=== PATIENT | female | born 1955 | race Caucasian/White ===

== ENCOUNTER → 2016-10-03 | Outpatient (CLI) | payer BC ==
[~2016-10-03] VITALS: Ht 167.6 cm; Wt 96.2 kg
[~2016-10-03] MED LIST: ACTIFED PO; GLUC1CAP9 PO; IBUP600T26 PO; LIDOCAINE 2% INJ 100 MG/5 ML SDV (FOR ANES.) As Ordered ONE; NS 1,000 ML IV SCH; PROPOFOL 200 MG/20 ML VIAL As Ordered ONE
--- NOTE | 2016-10-03 07:54 | ROOR ---
Patient Name: Luz Villegas Procedure Date: 10/03/2016 7:33 AM Date of : 1955 Age: 61 Room: [facility] Gender: Female Note Status: Finalized Procedure: Colonoscopy to Cecum + Biopsy Polypectomy Indications: Screening for colorectal malignant neoplasm Providers: Travon New MD Referring MD: Vaishali HENRY MD Requesting Provider: Medicines: Monitored Anesthesia Care Complications: No immediate complications. Procedure: Pre-Anesthesia Assessment: - The heart rate, respiratory rate, oxygen saturations, blood pressure, adequacy of pulmonary ventilation, and response to care were monitored throughout the procedure. The Colonoscope was introduced through the anus and advanced to the cecum, identified by appendiceal orifice and ileocecal valve. The colonoscopy was performed without difficulty. The patient tolerated the procedure well. The quality of the bowel preparation was good. Findings: The perianal and digital rectal examinations were normal. Multiple sessile polyps were found at 10 cm proximal to the anus. The polyps were small in size. These polyps were removed with a cold biopsy forceps. Resection and retrieval were complete. The exam was otherwise without abnormality on direct and retroflexion views. Impression: - Multiple small polyps at 10 cm proximal to the anus, removed with a cold biopsy forceps. Resected and retrieved. - The examination was otherwise normal on direct and retroflexion views. - The exam was otherwise normal to the cecum. Recommendation: - Patient has a contact number available for emergencies. The signs and symptoms of potential delayed complications were discussed with the patient. Return to normal activities tomorrow. Written discharge instructions were provided to the patient. - High fiber diet. - Discharge patient to home. - Continue present medications. - Await pathology results. - Telephone GI clinic for pathology results in 1 week. - Repeat colonoscopy for surveillance based on pathology results. - Return to referring physician. - The findings and recommendations were discussed with the patient's family. Travon New MD Travon New MD 10/03/2016 7:53:56 AM This report has been signed electronically. Number of Addenda: 0 Note Initiated On: 10/03/2016 7:33 AM Estimated Blood Loss: Estimated blood loss: none.
[2016-10-03 08:13] VITALS: BP 148/82
== END ==
LOC: M OPP 06:38
PROVIDERS: ATTEND Internal Medicine Gastroenterology
DX: Z12.11 Encounter for screening for malignant neoplasm of colon (principal); K62.1 Rectal polyp; R06.83 Snoring; M19.90 Unspecified osteoarthritis, unspecified site; E66.9 Obesity, unspecified; M75.51 Bursitis of right shoulder; M75.52 Bursitis of left shoulder; Z79.899 Other long term (current) drug therapy; Z79.1 Long term (current) use of non-steroidal anti-inflammatories (NSAID); Z91.048 Other nonmedicinal substance allergy status

== ENCOUNTER → 2018-02-09 | Outpatient (REF) | payer BC ==
[2018-02-09 12:46] LABS: HEMATOCRIT 37.6 % (36.0-47.0); HEMOGLOBIN 12.3 g/dl (12.0-15.5); MEAN CORPUSCULAR HEMOGLOBIN 28.8 pg (27.0-33.0); MEAN CORPUSCULAR HGB CONC 32.7 g/dl (32.0-36.5); MEAN CORPUSCULAR VOLUME 88.1 fl (80.0-96.0); PLATELET COUNT, AUTOMATED 212 10^3/uL (150-450); RED BLOOD COUNT 4.27 10^6/uL (4.00-5.40); RED CELL DISTRIBUTION WIDTH 13.2 % (11.5-14.5); WHITE BLOOD COUNT 4.8 10^3/uL (4.0-10.0)
[2018-02-09 13:10] LABS: ERYTHROCYTE SEDIMENTATION RATE 8 mm/hr (0-30)
[2018-02-09 14:54] LABS: ALBUMIN 3.6 GM/DL (3.2-5.2); ALBUMIN/GLOBULIN RATIO 1.13 (1.00-1.93); ALKALINE PHOSPHATASE 59 U/L (45-117); ALT/SGPT 30 U/L (12-78); ANION GAP 7 MEQ/L (8-16); AST/SGOT 11 U/L (7-37); BILIRUBIN,TOTAL 0.3 MG/DL (0.2-1.0); BLOOD UREA NITROGEN 18 MG/DL (7-18); C REACTIVE PROTEIN QUANTITATIV 0.37 MG/DL (0.00-0.30); CALCIUM LEVEL 8.8 MG/DL (8.8-10.2); CARBON DIOXIDE LEVEL 29 MEQ/L (21-32); CHLORIDE LEVEL 107 MEQ/L (98-107); CREATININE FOR GFR 0.65 MG/DL (0.55-1.30); GLOMERULAR FILTRATION RATE > 60.0 (>45); GLUCOSE, FASTING 85 MG/DL (70-100); POTASSIUM SERUM 4.3 MEQ/L (3.5-5.1); SODIUM LEVEL 143 MEQ/L (136-145); TOTAL PROTEIN 6.8 GM/DL (6.4-8.2)
[2018-02-11 00:07] LABS: ANTINUCLEAR ANTIBODIES DIRECT Negative (Negative); Lyme Disease IgG/IgM Antibodie <0.91 ISR (0.00-0.90); Lyme Disease IgM Ab Quantitati <0.80 index (0.00-0.79)
[2018-02-11 12:31] LABS: ALBUMIN 4.13 GM/DL (3.29-5.55); ALBUMIN % 60.7 % (55.8-66.1); ALPHA-1-GLOBULIN % 4.5 % (2.9-4.9); ALPHA-1-GLOBULINS 0.31 GM/DL (0.17-0.41); ALPHA-2-GLOBULINS 0.66 GM/DL (0.42-0.99); ALPHA-2-GLOBULINS % 9.7 % (7.1-11.8); BETA-1-GLOBULINS 0.41 GM/DL (0.28-0.60); BETA-2-GLOBULINS 0.38 GM/DL (0.19-0.55); BETA-2-GLOBULINS % 5.6 % (3.2-6.5); GAMMA GLOBULIN % 13.5 % (11.1-18.8); GAMMA GLOBULINS 0.92 GM/DL (0.65-1.58)
== END ==
LOC: M LAB REF 12:25
DX: M79.641 Pain in right hand (principal)
CPT/HCPCS: 84165

== ENCOUNTER → 2018-09-20 | Outpatient (REF) | payer BC ==
[~2018-09-20] MED LIST changes: +IBUP-1022 PO; -IBUP600T26 PO; -LIDOCAINE 2% INJ 100 MG/5 ML SDV (FOR ANES.) As Ordered ONE; -NS 1,000 ML IV SCH; -PROPOFOL 200 MG/20 ML VIAL As Ordered ONE
[2018-09-20 12:58] LABS: ALT/SGPT 39 U/L (12-78)
== END ==
LOC: M LABDRAW1 11:51
PROVIDERS: ATTEND Internal Medicine Rheumatology
DX: R79.89 Other specified abnormal findings of blood chemistry (principal)

== ENCOUNTER → 2018-12-14 | Outpatient (CLI) | payer BC ==
--- NOTE | 2018-12-15 09:10 | REP ---
Chest x-ray: Two views. History: Acute bronchitis. Findings: The lungs are somewhat hyperinflated consistent with some degree of COPD. There are hazy opacities in the right base medially of uncertain significance. Right middle lobe infiltrate suspected. Followup is advised. The thoracic aorta is tortuous. Heart size is normal. No other infiltrate is seen. Pulmonary vasculature is not increased. There are degenerative changes in the right AC joint. The left distal clavicle appears to have been resected. Impression: Findings suggestive of right middle lobe infiltrate. Followup chest x-ray is advised. Electronically Signed by Abdelrahman Bell MD 12/15/2018 09:21 A
== END ==
LOC: M WUC 18:38
PROVIDERS: ATTEND Physician Assistant
DX: R91.8 Other nonspecific abnormal finding of lung field (principal)

== ENCOUNTER → 2018-12-21 | Outpatient (REF) | payer BC | LOC: M LAB REF 12:38 | PROVIDERS: ATTEND Internal Medicine | DX: J12.9 Viral pneumonia, unspecified (principal) ==

== ENCOUNTER → 2019-01-14 | Outpatient (CLI) | payer BC ==
--- NOTE | 2019-01-18 16:24 | SLEEPHOME ---
DATE OF PROCEDURE: 01/14/2019 ORDERED BY JANY Lieberman Diagnostic home sleep testing was performed due to concern for the obstructive sleep apnea syndrome. For testing a nocturnal T3 respiratory monitoring device was used. Continuous record was made of pulse, oxygen saturation, airflow, chest, abdominal strain and body position. 10 hours and 59 minutes of data were reviewed. There were 7 hours and 59 minutes marked as time in bed. During the interval marked time in bed, there were 164 respiratory events identified of 10 seconds in duration or greater for a respiratory event index of 20.5. The events were primarily obstructive. Baseline pulse rate 72, pulse rate ranged 61-143. Baseline saturation 93%. Saturations fell to 73%. Testing was performed in both the supine and nonsupine positions. IMPRESSION: Abnormal home sleep testing with repetitive respiratory events and oxygen desaturations to 73% with a respiratory event index of 20.5 is consistent with the obstructive sleep apnea syndrome. RECOMMENDATIONS: The patient should be encouraged to undergo formal sleep evaluation and in-laboratory pressure titration.
== END ==
LOC: M SLEEP HO 14:01
PROVIDERS: ATTEND Nurse Practitioner Family
DX: R06.83 Snoring (principal)

== ENCOUNTER → 2019-01-15 | Outpatient (CLI) | payer BC ==
--- NOTE | 2019-01-15 14:44 | REP ---
Clinical: Follow up pneumonia . Comparison: 12/14/2018 . Technique: PA and lateral. Findings: The mediastinum and cardiac silhouette are normal. The lung iraheta are clear and without acute consolidation, effusion, or pneumothorax. Previously identified right middle lobe infiltrate has resolved. The skeletal structures are intact and normal. Impression: 1. No acute cardiopulmonary process. Electronically Signed by Kofi Oakes MD 01/15/2019 02:36 P
== END ==
LOC: M WUC 14:22
PROVIDERS: ATTEND Internal Medicine
DX: Z09 Encounter for follow-up examination after completed treatment for conditions other than malignant neoplasm (principal); Z87.01 Personal history of pneumonia (recurrent)

== ENCOUNTER → 2019-06-24 | Outpatient (REF) | payer BC ==
[2019-06-24 12:59] LABS: C REACTIVE PROTEIN QUANTITATIV 1.26 MG/DL (0.00-0.30); RHEUMATOID FACTOR QUANT < 10.0 IU/ML (<15.0)
[2019-06-27 00:09] LABS: ANA (HEP2) Negative (.); CYCLIC CITRULLINATED PEPTIDE 9 units (0-19)
== END ==
LOC: M LAB REF 12:13
PROVIDERS: ATTEND Nurse Practitioner Family
DX: M15.0 Primary generalized (osteo)arthritis (principal)

== ENCOUNTER → 2019-06-27 | Outpatient (CLI) | payer BC ==
--- NOTE | 2019-06-28 02:06 | REP ---
Clinical: Inflammatory arthritis. Technique: AP and lateral views of the right and left foot. Findings: Right foot demonstrates mild generalized age-related changes. No overt osteoarthritic degenerative changes are identified. Specifically, no periarticular inflammatory changes, swelling, loose bodies or erosions are identified. No osteophytosis. Joint spaces are relatively normal. Small calcaneal heal spur noted. Left foot demonstrates mild generalized age-related changes. No overt osteoarthritic degenerative changes are identified. Specifically, no periarticular inflammatory changes, swelling, loose bodies or erosions are identified. No osteophytosis. Joint spaces are relatively normal. Impression: Mild symmetric generalized age-related changes. Electronically Signed by Kofi Oakes MD 06/28/2019 01:57 A
--- NOTE | 2019-06-28 02:40 | REP ---
Clinical: inflammatory arthritis. Technique: AP, lateral, bilateral oblique views of the right and left hand. Findings: Right hand demonstrates mild age-related arthritic changes primarily involving the interphalangeal joints and first metacarpophalangeal joint. Findings include subchondral sclerosis with minimal joint space narrowing and very early spurring at the distal interphalangeal joint level. No periarticular swelling, loose bodies, or erosive changes are appreciated. Increased sclerosis along the radial surface and decreased radiocarpal joint space also noted. Left hand demonstrates mild age-related arthritic changes primarily involving the interphalangeal joints and first metacarpophalangeal joint. Findings include subchondral sclerosis with minimal joint space narrowing and very early spurring at the distal interphalangeal joint level. No periarticular swelling, loose bodies, or erosive changes are appreciated. Increased sclerosis along the radial surface and decreased radiocarpal joint space also noted. Impression: Relatively symmetric age-related osteoarthritic degenerative changes. Electronically Signed by Kofi Oakes MD 06/28/2019 02:32 A
== END ==
LOC: M WUC 16:59
PROVIDERS: ATTEND Internal Medicine Rheumatology
DX: M19.041 Primary osteoarthritis, right hand (principal); M19.042 Primary osteoarthritis, left hand

== ENCOUNTER → 2019-12-28 | Outpatient (CLI) | payer BC ==
--- NOTE | 2020-01-02 10:12 | SLEEPCENT ---
DATE OF PROCEDURE: 12/28/2019 ORDERED BY: JANY Lieberman Nocturnal polysomnography was performed for the titration of pressure therapy in this patient with a clinical diagnosis of obstructive sleep apnea syndrome supported by home testing revealing a respiratory event index of 20 with desaturations to 73%. For testing the patient was fit with a ResMed AirFit F30 full-face mask of medium size; 4 cm of water pressure were applied to the circuit and the lights were extinguished. 7 hours and 17 minutes of data were reviewed. There were 358.5 minutes of sleep identified. Sleep latency was mildly prolonged at 32.5 minutes. Rapid eye movement (REM) latency was normal at 80 minutes. Sleep architecture was good with 4 REM cycles. Overall sleep efficiency was 83.1%. The patient's electrocardiogram showed a sinus rhythm with an average heart rate of 68 beats per minute and occasional PVCs were identified. Electroencephalogram (EEG) showed normal waveforms for awake and sleep. Respiratory events were best palliated with CPAP at a pressure +15 with some occasional limb activity noted. Limb movement arousal index of 4.9. IMPRESSION: Obstructive sleep apnea syndrome (G47.33). RECOMMENDATIONS: Nightly use of pressure therapy 15 cm of water.
== END ==
LOC: M SLEEP 20:00
PROVIDERS: ATTEND Nurse Practitioner Family
DX: G47.33 Obstructive sleep apnea (adult) (pediatric) (principal)

== ENCOUNTER → 2020-10-19 | Outpatient (REF) | payer BC ==
[2020-10-19 17:31] LABS: C REACTIVE PROTEIN QUANTITATIV 0.93 MG/DL (0.00-0.30); RHEUMATOID FACTOR QUANT < 10.0 IU/ML (<15.0)
[2020-10-22 16:07] LABS: ANTI DOUBLE STRAND-DNA AB <1 IU/mL (0-9); ANTINUCLEAR ANTIBODIES DIRECT Positive (Negative); RNP ANTIBODIES <0.2 AI (0.0-0.9); SJOGREN'S ANTI SS-A 3.4 AI (0.0-0.9); SJOGREN'S ANTI SS-B <0.2 AI (0.0-0.9); SMITH ANTIBODIES <0.2 AI (0.0-0.9)
== END ==
LOC: M LAB REF 16:35
PROVIDERS: ATTEND Registered Nurse
DX: M13.0 Polyarthritis, unspecified (principal)

== ENCOUNTER 2021-02-08 06:54 | Observation (INO) | payer BC ==
[~2021-02-08] VITALS: Ht 165.1 cm; Wt 106.8 kg
[2021-02-08] MEDS ORDERED: ASPIRIN 81 MG CHEW TABLET PO ONE (07:25)
[2021-02-08] MEDS ORDERED: DIPH50CA PO (07:28)
[2021-02-08] MEDS ORDERED: LISI40TA4 PO (07:28)
[2021-02-08] MEDS ORDERED: HYDR200T3 PO (07:28)
[2021-02-08] MEDS ORDERED: IBUP-1114 PO (07:28)
[2021-02-08] MEDS ORDERED: CLAR5TAB11 PO (07:28)
[2021-02-08] MEDS ORDERED: HYDR12CA PO (07:28)
[2021-02-08 07:34] LABS: BASO % 0.5 % (0.0-1.0); EOS # 0.2 10^3/uL (0.0-0.5); EOS % 2.7 % (0.0-3.0); HEMATOCRIT 38.9 % (36.0-47.0); HEMOGLOBIN 12.6 g/dl (12.0-15.5); LYMPH % 17.5 % (24.0-44.0); MEAN CORPUSCULAR HEMOGLOBIN 29.9 pg (27.0-33.0); MEAN CORPUSCULAR HGB CONC 32.4 g/dl (32.0-36.5); MEAN CORPUSCULAR VOLUME 92.4 fl (80.0-96.0); MONO # 0.5 10^3/uL (0.0-0.8); MONO % 7.9 % (2.0-8.0); NEUTROPHILS # 4.2 10^3/uL (1.5-8.5); NEUTROPHILS % 71.1 % (36.0-66.0); PLATELET COUNT, AUTOMATED 208 10^3/uL (150-450); RED BLOOD COUNT 4.21 10^6/uL (4.00-5.40); WHITE BLOOD COUNT 5.9 10^3/uL (4.0-10.0)
[2021-02-08] MEDS ORDERED: ISOVUE-370 76% 100ML VIAL As Ordered ONE (07:53)
[2021-02-08 08:06] LABS: ALBUMIN 3.9 GM/DL (3.2-5.2); ALT/SGPT 29 U/L (12-78); BILIRUBIN,DIRECT < 0.1 MG/DL (0.0-0.2); BILIRUBIN,TOTAL 0.3 MG/DL (0.2-1.0); FREE T4 0.96 NG/DL (0.76-1.46); LIPASE 898 U/L (73-393); TOTAL PROTEIN 7.2 GM/DL (6.4-8.2)
--- NOTE | 2021-02-08 08:14 | REP ---
INDICATION: CHEST PAIN COMPARISON: 01/15/2019 TECHNIQUE: Portable AP view of the chest FINDINGS: The mediastinum and cardiac silhouette are stable and within normal limits for portable technique. The lung iraheta are clear without acute consolidation, effusion, or pneumothorax. Skeletal structures are intact. IMPRESSION: No acute cardiopulmonary process appreciated. <Electronically signed by Kofi Oakes > 02/08/21 [id number]
--- NOTE | 2021-02-08 08:20 | REP ---
INDICATION: chest pain, epigastric pain, vomiting COMPARISON: None. TECHNIQUE: Axial contrast enhanced images from the thoracic inlet to the upper abdomen using pulmonary embolus technique with multiplanar re-formations. 75 ml Isovue 370 intravenous contrast material administered without complication. This CT examination was performed using the following dose reduction techniques: Automated exposure control, adjustment of mA and/or kv according to the patient's size, and use of iterative reconstruction technique. FINDINGS: Satisfactory enhancement of the pulmonary vasculature is achieved and no filling defects are identified to suggest pulmonary embolus. Further evaluation of the mediastinum demonstrates normal thoracic aorta, heart and pericardium. The bilateral lung iraheta are well aerated and clear without consolidation pleural effusion or pneumothorax. Tracheobronchial tree is patent. No nodule or mass lesion is identified. No adenopathy noted. Surrounding musculoskeletal structures intact. Incidental small hiatal hernia at the gastroesophageal junction noted. IMPRESSION: No evidence for pulmonary embolus. No acute mediastinal or pleural parenchymal process. Small hiatal hernia. <Electronically signed by Kofi Oakes > 02/08/21 [id number]
--- NOTE | 2021-02-08 08:24 | REP ---
INDICATION: chest pain, epigastric pain, vomiting. COMPARISON: None TECHNIQUE: Axial contrast-enhanced images from the lung bases to the pubic symphysis using 100 cc Isovue 370 intravenous contrast material. Coronal and sagittal reformations obtained. This CT examination was performed using the following dose reduction techniques: Automated exposure control, adjustment of mA and/or kv according to the patient's size, and the use of iterative reconstruction technique. FINDINGS: Liver, spleen, pancreas, gallbladder, bilateral adrenal glands and kidneys are normal. Small hiatal hernia at the gastroesophageal junction. No bowel obstruction or acute inflammatory process. Normal terminal ileum and appendix identified in the right lower quadrant.. Pelvis demonstrates normal bladder and age-appropriate uterus/adnexa. No ascites. No free air. No intraperitoneal or retroperitoneal adenopathy. Abdominal aorta and vasculature appear normal. Musculoskeletal structures are intact and without acute osseous abnormality. IMPRESSION: No acute abdominopelvic pathology appreciated. Small hiatal hernia. <Electronically signed by Kofi Oakes > 02/08/21 [id number]
[2021-02-08 12:29] LABS: INR 0.92; PARTIAL THROMBOPLASTIN TIME 30.8 SECONDS (24.2-38.5); PROTHROMBIN TIME 12.5 SECONDS (12.5-14.3)
[2021-02-08] MEDS ORDERED: NS 1,000 ML IV ONE (12:50)
[2021-02-08] MEDS ORDERED: ONDANSETRON 4MG/2ML VIAL IV ONE (12:50)
[2021-02-08] MEDS ORDERED: GLUCTAB6 PO (13:10)
[2021-02-08] MEDS ORDERED: PRED5TA PO (13:10)
[2021-02-08] MEDS ORDERED: IBUP-1764 PO (13:12)
[2021-02-08] MEDS ORDERED: ONDANSETRON 4MG/2ML VIAL IV PRN (14:15)
[2021-02-08] MEDS ORDERED: diphenhydrAMINE 50MG CAP PO PRN (14:20)
[2021-02-08] MEDS ORDERED: ACETAMINOPHEN TAB 650MG DOSE (2X325MG) PO PRN (14:20)
--- NOTE | 2021-02-08 14:39 | HPEPDOC ---
[facility] Medical History & Physical Date of Admission Feb 08, 2021 Date of Service: Feb 08, 2021 History and Physical CHIEF COMPLAINT: Chest pain HISTORY OF PRESENT ILLNESS: 65-year-old female history of hypertension rheumatoid arthritis presents with chest pain. Patient tells me that starting at 4 AM she is a combination of epigastric pain and chest pain mostly in the epigastric area that she rates as 5 out of 10 describes as a dull achy pain that does not radiate lasting for several hours intermittently worsening improving without going away and was associated with nausea and vomiting this morning which subsided until a few hours ago. She denies any other abdominal pain denies dysuria denies fevers or chills denies shortness of breath. Tells me she hasn't had this pain before. No factors aggravate or alleviate the pain. She does endorse occasional use and does not know if she has hyperlipidemia. In the emergency department CT chest and abdomen was negative for acute findings and patient was going to be dis charged after negative troponins however she experienced another bout of nausea and vomiting lipase was found to be elevated patient will be admitted for observation for ruling out ACS and management of pancreatitis. PAST MEDICAL/SURGICAL HISTORY: Hypertension Rheumatoid arthritis Left rotator cuff surgery Left knee surgery SOCIAL HISTORY: Drinks alcohol occasionally Denies tobacco use quit many years ago but has a history of smoking on and off for over 20 years Denies illicit drug use FAMILY HISTORY: Reviewed and none contributory to this admission ALLERGIES: Please see below. REVIEW OF SYSTEMS: 10 point review of systems complete all negative otherwise stated in HPI HOME MEDICATIONS: Please see below. PHYSICAL EXAMINATION: Constitutional: Awake and alert, in no apparent distress ENT: Sclera are clear. Mucosa is moist. Respiratory: Lungs CTA bilaterally. No respiratory distress. Cardiovascular: RRR S1 and S2 are normal, no murmur Gastrointestinal: Abdomen is soft, non distended, non tender, BS present. Musculoskeletal: No lower extremity edema. Neurologic: No focal neurological deficit. Mental Status: A&O x3, normal affect Skin: Warm, dry LABORATORY DATA: See below. IMAGING: See chart MICROBIOLOGY: Please see below. ASSESSMENT/PLAN 65-year-old female history of rheumatoid arthritis and hypertension presents with chest pain found to have mild expiratory admitted for ruling out ACS and for management of kwaku ascites. # Pancreatitis: Lipase elevated. Trend lipase. No evidence of pink status on CT. Clinically no abdominal pain on palpation. However she does have an elevated lipase as well as nausea and vomiting. We will treat as a mild case of luna creatitis. IV fluids. Pain control. Antiemetics with IV Zofran and Reglan. Advance diet as tolerated. Check lipid panel. Advised to quit alcohol use. # Chest pain: Rule out ACS. Atypical chest pain. More likely referred epigastric pain from pancreatitis. Trend troponins. EKG reviewed. # Rheumatoid arthritis: Continue home medications # Hypertension: Continue home meds. Monitor and titrate # DVT prophylaxis: Lovenox A Swapnilf Hospitalist Vital Signs Vital Signs Date Time Temp Pulse Resp B/P (MAP) Pulse Ox O2 Delivery O2 Flow Rate FiO2 02/08/21 08:30 71 152/80 (104) 94 Room Air 02/08/21 06:55 97.9 18 Laboratory Data Labs 24H Laboratory Tests 2 02/08/21 07:20: Immature Granulocyte % (Auto) 0.3, Neutrophils (%) (Auto) 71.1H, Lymphocytes (%) (Auto) 17.5L, Monocytes (%) (Auto) 7.9, Eosinophils (%) (Auto) 2.7, Basophils (%) (Auto) 0.5, Neutrophils # (Auto) 4.2, Lymphocytes # (Auto) 1.0L, Monocytes # (Auto) 0.5, Eosinophils # (Auto) 0.2, Basophils # (Auto) 0.0, Nucleated Red Blood Cells % (auto) 0.0, Total Bilirubin 0.3, Direct Bilirubin < 0.1, Aspartate Amino Transf (AST/SGOT) 16, Alanine Aminotransferase (ALT/SGPT) 29, Alkaline Phosphatase 65, Total Protein 7.2, Albumin 3.9, Albumin/Globulin Ratio 1.2, Lipase 898H, Thyroid Stimulating Hormone (TSH) 2.560, Free Thyroxine 0.96 02/08/21 07:26: POC Glucose (Misc Panel) 111H, POC Sodium (Misc Panel) 143, POC Potassium (Misc Panel) 3.9, POC Chloride (Misc Panel) 102, POC Total CO2 (Misc Panel) 24.0, POC Blood Urea Nitrogen (Misc Panel 15, POC Ionized Calcium (Misc Panel) 5.0, POC Creatinine (Misc Panel) 0.8, POC Hematocrit (Misc Panel) 38.0 02/08/21 07:35: POC Troponin I (Misc) 0.01 02/08/21 11:35: Prothrombin Time 12.5, Prothromb Time International Ratio 0.92, Activated Partial Thromboplast Time 30.8 02/08/21 11:47: POC Troponin I (Misc) 0.00 CBC/BMP Laboratory Tests 02/08/21 07:20 Microbiology Microbiology 02/08/21 Respiratory Virus Panel (PCR) ([facility]) - Final, Complete Home Medications Scheduled Gluc Carr/Chondro Carr A/Vit C/Mn (Glucosamine Chondroitin Tab) 1 Each Tablet, 1 TAB PO DAILY Hydrochlorothiazide (Hydrochlorothiazide) 12.5 Mg Capsule, 12.5 MG PO DAILY Hydroxychloroquine Sulfate (Hydroxychloroquine Sulfate) 200 Mg Tablet, 200 MG PO BID Lisinopril (Lisinopril) 40 Mg Tablet, 40 MG PO DAILY Scheduled PRN Diphenhydramine HCl (Diphenhydramine HCl) 50 Mg Capsule, 50 MG PO QHS PRN for SLEEP Ibuprofen (Ibuprofen) 200 Mg Tablet, 400 MG PO TID PRN for PAIN LEVEL 1-5 Allergies Coded Allergies: No Known Allergies (Unverified , 02/08/21) A-FIB/CHADSVASC A-FIB History Current/History of A-Fib/PAF?: No JOEY HAMMOND MD Feb 08, 2021 14:39
[2021-02-08] MEDS: METOCLOPRAMIDE INJ 10MG/2ML VIAL (J2765 PER 1) IV SCH ×2 (14:51→21:50)
[2021-02-08] MEDS: lisinopriL 40 MG TAB PO SCH (14:52)
[2021-02-08] MEDS: MOM 30ML SUSPENSION UDC PO PRN ×2 (14:52→15:00)
[2021-02-08] MEDS: ENOXAPARIN 40MG/0.4ML SYRINGE (J1650 PER 10MG) SC SCH (14:52)
[2021-02-08] MEDS: NS 1,000 ML IV SCH ×2 (14:52→19:46)
[2021-02-08] MEDS: hydroCHLOROthiazide 12.5 MG CAPSULE PO SCH (14:52)
[2021-02-08 15:19] LABS: CHOLESTEROL LEVEL 232 MG/DL (<200); HDL CHOLESTEROL 50 MG/DL (>40); LDL CHOLESTEROL 163 MG/DL (<100); NON-HDL-C 182 MG/DL; TRIGLYCERIDES LEVEL 94 MG/DL (<150)
[2021-02-08 19:55] VITALS: BP 173/83
[2021-02-08] MEDS: HYDROXYCHLOROQUINE 200 MG TAB PO SCH (21:50)
[2021-02-09] MEDS: NS 1,000 ML IV SCH ×2 (01:38→06:43)
[2021-02-09] MEDS: METOCLOPRAMIDE INJ 10MG/2ML VIAL (J2765 PER 1) IV SCH ×2 (03:25→08:34)
[2021-02-09 06:00] VITALS: BP 123/58
--- NOTE | 2021-02-09 06:45 | ECGEPIP ---
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
--- NOTE | 2021-02-09 06:48 | ECGEPIP ---
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
[2021-02-09 06:51] LABS: MEAN CORPUSCULAR HEMOGLOBIN 29.4 pg (27.0-33.0); MEAN CORPUSCULAR HGB CONC 32.1 g/dl (32.0-36.5); MEAN CORPUSCULAR VOLUME 91.4 fl (80.0-96.0); PLATELET COUNT, AUTOMATED 192 10^3/uL (150-450); RED BLOOD COUNT 3.61 10^6/uL (4.00-5.40); WHITE BLOOD COUNT 7.1 10^3/uL (4.0-10.0)
[2021-02-09 06:55] LABS: HEMOGLOBIN 10.6 g/dl (12.0-15.5)
[2021-02-09 07:09] LABS: BLOOD UREA NITROGEN 13 MG/DL (7-18); CALCIUM LEVEL 8.1 MG/DL (8.8-10.2); CARBON DIOXIDE LEVEL 24 MEQ/L (21-32); CHLORIDE LEVEL 113 MEQ/L (98-107); CREATININE FOR GFR 0.67 MG/DL (0.55-1.30); GLOMERULAR FILTRATION RATE > 60.0 (>45); GLUCOSE, FASTING 88 MG/DL (70-100); LIPASE 142 U/L (73-393); MAGNESIUM LEVEL 2.1 MG/DL (1.8-2.4); POTASSIUM SERUM 3.7 MEQ/L (3.5-5.1); SODIUM LEVEL 144 MEQ/L (136-145)
[2021-02-09] MEDS: hydroCHLOROthiazide 12.5 MG CAPSULE PO SCH (08:34)
[2021-02-09] MEDS: lisinopriL 40 MG TAB PO SCH (08:34)
[2021-02-09] MEDS: HYDROXYCHLOROQUINE 200 MG TAB PO SCH (08:34)
[2021-02-09] MEDS: ENOXAPARIN 40MG/0.4ML SYRINGE (J1650 PER 10MG) SC SCH (08:36)
[2021-02-09 08:39] VITALS: BP 140/80
--- NOTE | 2021-02-09 11:00 | IPNPDOC ---
Text Note Date of Service The patient was seen on 02/09/21. NOTE Subjective: Reason seen and examined this morning. She denies any chest pain. Denies any epigastric pain. Denies any nausea or vomiting. Denies fevers or chills. Denies any abdominal pain. Says she's feeling great back to normal. She was able to eat her breakfast this morning. There is no acute overnight events reported to me. Feels she is rated go home. Objective: Constitutional: Awake and alert, in no apparent distress ENT: Sclera are clear. Mucosa is moist. Respiratory: Lungs CTA bilaterally. No respiratory distress. Cardiovascular: RRR S1 and S2 are normal, no murmur Gastrointestinal: Abdomen is soft, non distended, non tender, BS present. Musculoskeletal: No lower extremity edema. Neurologic: No focal neurological deficit. Mental Status: A&O x3, normal affect Skin: Warm, dry Assessment/plan: 65-year-old female history of rheumatoid arthritis and hypertension presents with chest pain found to have mild expiratory admitted for ruling out ACS and f or management of pancreatitis # Pancreatitis: Lipase elevated initially but down trended and resolved on day 2. No evidence of pancreatitis on CT. Clinically no abdominal pain on palpation. Nausea and vomiting is resolved. This was likely a mild case of pancreatitis that was treated with IV fluids and pain control and antiemetics. She tolerated her diet well. Advised to quit alcohol use. Discharge home and follow-up with PCP. # Chest pain: Ruled out ACS. Atypical chest pain. More likely referred epigastric pain from pancreatitis. Troponins trended negative. EKG reviewed. # Rheumatoid arthritis: Continue home medications # Hypertension: Continue home meds. Monitor and titrate # DVT prophylaxis: Merynox A Maldonado Hospitalist VSElian, I+O VSElian I+O Laboratory Tests 02/09/21 05:48 Vital Signs Date Time Temp Pulse Resp B/P (MAP) Pulse Ox O2 Delivery O2 Flow Rate FiO2 02/09/21 08:39 80 140/80 (100) 02/09/21 06:00 97.9 18 96 NIPPV (BIPAP/CPAP) I&O- Last 24 Hours up to 6 AM 02/09/21 06:00 Intake Total 2080 ml Output Total 475 ml Balance 1605 ml JOEY HAMMOND MD Feb 09, 2021 11:00
== END 2021-02-09 12:52 | disposition home or self-care (01) ==
LOC: M ED 06:54 → M ED INP 06:55 → ENRESERV 18:32 → M MSPAV 19:55
PROVIDERS: ADMIT Family Medicine; ATTEND Family Medicine
DX: R07.89 Other chest pain (principal); K85.90 Acute pancreatitis without necrosis or infection, unspecified; R10.13 Epigastric pain; R74.8 Abnormal levels of other serum enzymes; R11.2 Nausea with vomiting, unspecified; I10 Essential (primary) hypertension; M06.9 Rheumatoid arthritis, unspecified; Z87.891 Personal history of nicotine dependence; Z79.899 Other long term (current) drug therapy
CPT/HCPCS: 36415; 71045; 71275; 74177; 80047; 80048; 80061; 80076; 83690; 83735; 84439; 84443; 84484; 85025; 85027; 85610; 85730; 87798; 93005; 93041; 94760; 96361; 96372; 96374; 96375; 96376; 99285; J1650; J2405; J2765; Q9967

== ENCOUNTER → 2021-02-21 | Outpatient (REF) | payer BC ==
[~2021-02-21] MED LIST changes: +CLAR5TAB11 PO; +DIPH50CA PO; +GLUCTAB6 PO; +HYDR12CA PO; +HYDR200T3 PO; +IBUP-1114 PO; +IBUP-1764 PO; +LISI40TA4 PO; +PRED5TA PO
== END ==
LOC: M LAB REF 17:16
PROVIDERS: ATTEND Physician Assistant Medical
DX: K86.89 Other specified diseases of pancreas (principal)

== ENCOUNTER → 2021-03-08 | Outpatient (REF) | payer BC | LOC: M LAB REF 12:23 | PROVIDERS: ATTEND Internal Medicine | DX: K85.90 Acute pancreatitis without necrosis or infection, unspecified (principal) ==

== ENCOUNTER → 2021-06-08 | Outpatient (REF) | payer BC | LOC: M WUC 17:11 | PROVIDERS: ATTEND Physician Assistant | DX: R30.0 Dysuria (principal) ==

== ENCOUNTER 2021-07-12 10:33 | Emergency (ER) | payer BC ==
[~2021-07-12] VITALS: Ht 165.1 cm; Wt 104.8 kg
--- OUTSIDE RECORDS SUMMARY | 2021-07-12 10:41 | CCD | Continuity of Care Document ---
Author Author Luz POLANCO AR Organization Unknown Address [address] [place] [id number] Phone [phone] Care Team Providers Care Russet Repairer Name Role Phone [facility] AUTM [phone] [employer] [employer] AUTM [phone] Problems Active Problems Provider Date Acute sinusitis Angel Grant, P.ASindy Onset: 0 Tobacco user Onset: Acute cystitis Elbert Prater, P.ASindy Onset: 2010 Social History Type Date Description Comments Sex Unknown Tobacco Use Start: Unknown End: Unknown Quit ETOH Use Occasionally consumes alcohol Tobacco Use Start: Unknown End: Unknown Patient is a former smoker Tobacco Use Start: Unknown The Patient Has Never Vaped Smoking Status Reviewed: 01/04/21 The Patient Has Never Vaped Allergies and adverse reactions Active Allergies Criticality Reaction | Severity Comments Date Latex Unable to assess criticality 12/09/2008 Ketoconazole Unable to assess criticality 06/08/2021 Medications Active Medications SIG Qnty Indications Ordering Provide r Date Cephalexin 500mg Tablets 1 tab by mouth q12 hours for 7 days 14tabs R30.0 Artem Mckeon JR. 06/08/2021 Glucosamine Chondroitin 1500 Complex 1500Com Capsules Unknown Lisinopril Unknown Hydrochlorothiazide Unknown Ibu-200 200mg Tablets 7:30 am today Unknown Benadryl Allergy 25mg Capsules Unknown Hydroxychloroquine Sulfate Unknown History Medications Ketoconazole 2% Cream aaa twice a day for 3-4 wks. 60gm B35.4 Nadir Cabral JR., M.D. - 06/08/2021 Immunizations CPT Code Status Date Vaccine Lot # [id number] Given 06/29/2008 Influenza Virus Split 3 Yrs And Above For Intramuscular Use 02635 Given 02/09/2008 Tetanus (Td) Vaccine 7Yrs> Q2037 Given 07/13/2007 Influenza Virus Split 3 Yrs And Above For Intramuscular Use Vital Signs Date Vital Result Comment 06/08/2021 11:47am BP Systolic 115 mmHg BP Diastolic 75 mmHg Heart Rate 79 /min Respiratory Rate 16 /min O2 % BldC Oximetry 97 % Body Temperature 97.9 F Weight 230.00 lb Height 65 inches 5'5" BMI (Body Mass Index) 38.3 kg/m2 Pain Level 2 01/04/2021 3:04pm BP Systolic 133 mmHg BP Diastolic 83 mmHg Heart Rate 73 /min Respiratory Rate 16 /min O2 % BldC Oximetry 97 % Body Temperature 98.0 F Weight 230.00 lb Height 65 inches 5'5" BMI (Body Mass Index) 38.3 kg/m2 Pain Level 2 Results Test Acquired Date Facility Test Result H/L Range Note Laboratory test finding 06/08/2021 [facility] [address] [id number] [phone] Urine Culture <pending> Procedures Date Code Description Status 06/08/2021 01214 Office/Outpatient Established Lo w MDM 20-29 Min Completed 01/04/2021 40470 Office/Outpatient Established Lo w MDM 20-29 Min Completed Medical Devices Description No Information Available Encounters Type Date Location Provider Dx Diagnosis Office Visit 06/08/2021 9:15a Main Office CASTRO Porter R30 .0 Dysuria Office Visit 01/04/2021 3:05p Main Office CASTRO Porter B35 .4 Tinea corporis Assessments Date Code Description Provider 06/08/2021 R30.0 Dysuria CASTRO Roberts 01/04/2021 B35.4 Tinea corporis CASTRO Roberts Plan of Treatment No Information Available Functional Status Description No Information Available Mental Status Description No Information Available Referrals Description No Information Available
--- OUTSIDE RECORDS SUMMARY | 2021-07-12 10:41 | CCD | Continuity of Care Document ---
Author Author Teri Nuclear/Reg Luz Kenyon Lindsey Organization Unknown Address [address] [place] [address], [facility] [place] [address] Phone [phone] Care Team Providers Care All Terrain Vehicle Technician Name Role Phone Keven Sweeney PA-C AUTM [phone] Denise Ho DIGITAL CAMPAIGN MANAGER AUTM [phone] Hailee Roger DIGITAL CAMPAIGN MANAGER AUTM [phone] Consuelo Bermudez MD AUTM [phone] Problems Active Problems Provider Date Obstructive sleep apnea syndrome Matt Campo MD Onset: 04/08/2021 Edema Matt Campo MD Onset: 04/08/2021 Essential hypertension Matt Campo MD Onset: 04/08/2021 Electrocardiogram abnormal Matt Campo MD Onset: 2020 Right bundle branch block Matt Campo MD Onset: 021 Chest pain Matt Campo MD Onset: 04/08/2021 Social History Type Date Description Comments Sex Unknown ETOH Use Occasionally consumes alcohol Tobacco Use Start: Unknown End: Unknown Patient is a former smoker quit in 2005 Smoking Status Reviewed: 04/08/21 Patient is a former smoker qu it in 2006 Exercise Type/Frequency Does not exercise curren tly Exercise Limitations Joint Pain bilateral k nees and shoulders Allergies and adverse reactions Description No Known Drug Allergies Medications Active Medications SIG Qnty Indications Ordering Provide r Date Hydroxychloroquine Sulfate 200mg T ablets Take 2 Tablets By Mouth Once Daily Unknown 04/07/2021 Loratadine 10mg Capsules 1 by mouth every day Unknown 04/07/2021 Diphenhydramine HCL 25mg Tablets 2 by mouth bid Unknown 04/07/2021 Ibuprofen 200 200mg Tablets 2 by mouth bid Unknown 04/07/2021 Glucosamine 1500 Complex 1500Com C apsules 1 by mouth daily Unknown 04/07/2021 Hydrochlorothiazide 12.5mg Capsule s take 1 capsule by mouth once daily 90caps Misha ELIZABETH MD, Aggiei ns F 02/16/2020 Lisinopril 40mg Tablets 1 by mouth every day 90tabs Misha ELIZABETH MD, Nadir F 020 Immunizations Description No Information Available Vital Signs Date Vital Result Comment 04/08/2021 10:46am Weight 233.00 lb Height 65 inches 5'5" BMI (Body Mass Index) 38.8 kg/m2 Heart Rate 76 /min regular with occasio nal irregularity Respiratory Rate 18 /min BP Systolic Sitting 124 mmHg large cuff, Ra; 121/ 84 LA BP Diastolic Sitting 82 mmHg large cuff, Ra; 121 /84 LA BP Systolic Lying Down 126 mmHg Ra BP Diastolic Lying Down 83 mmHg Ra Results Test Acquired Date Facility Test Result H/L Range Note Laboratory test finding 02/21/2021 [facility] Lipase 469 U/L High 73-393 Laboratory test finding 02/08/2021 [facility] iSTAT Troponin 0.00 ng/mL 0.00-0.08 Laboratory test finding 02/08/2021 [facility] i[facility] Troponin 0.01 ng/mL 0.00-0.08 Istat Chem8+ Panel 02/08/2021 N2N/[facility] iSTAT HCT 38.0 % 38.0-51.0 iSTAT Glucose 111 mg/dL High 70-105 iSTAT Sodium 143 mEq/L 136-145 iSTAT Potassium 3.9 mEq/L 3.5-5.1 iSTAT CA++ 5.0 mg/dL 4.5-5.3 iSTAT Chloride 102 mEq/L 98-109 iSTAT Co2 24.0 MM/L 23.0-27.0 iSTAT BUN 15 mg/dL 8-26 iSTAT Creatinine 0.8 mg/dL 0.6-1.3 Procedures Date Code Description Status 06/05/2021 04838 Stress Echocardiography Complete d 06/05/2021 13348 Doppler Color Flow Velocity Jens ing Completed 05/21/2021 72203 Treadmill/Pharmacological Monito ring Completed 04/08/2021 82098 Office/Outpatient New Moderate M DM 45-59 Minutes Completed 04/08/2021 76834 ECG 12-Lead Completed Medical Devices Description No Information Available Encounters Type Date Location Provider Dx Diagnosis Office Visit 04/08/2021 10:30a Main Office Matt Campo MD R07.89 Other chest pain I45.19 Other right bundle-branch bl ock R94.31 Abnormal electrocardiogram [ ECG] [EKG] I10 Essential (primary) hyperten earl R60.0 Localized edema G47.33 Obstructive sleep apnea (spencer lt) (pediatric) Assessments Date Code Description Provider 06/05/2021 R07.2 Precordial pain Stress Nuclear/R eg Treadmill 06/05/2021 R94.31 Abnormal electrocardiogram [ECG] [EKG] Stress Nuclear/Reg Treadmill 06/05/2021 R06.00 Dyspnea, unspecified Stress Nucl ear/Reg Treadmill 05/21/2021 R07.2 Precordial pain Stress Nuclear/R eg Treadmill 05/21/2021 R94.31 Abnormal electrocardiogram [ECG] [EKG] Stress Nuclear/Reg Treadmill 05/21/2021 R06.02 Shortness of breath Stress Nucle ar/Reg Treadmill 04/08/2021 R07.89 Other chest pain Matt Campo MD 04/08/2021 I45.19 Other right bundle-branch block Matt Campo MD 04/08/2021 R94.31 Abnormal electrocardiogram [ECG] [EKG] Matt Campo MD 04/08/2021 I10 Essential (primary) hypertension Matt Campo MD 04/08/2021 R60.0 Localized edema Matt Campo MD 04/08/2021 G47.33 Obstructive sleep apnea (adult) (pediatric) Matt Campo MD Plan of Treatment Future Appointment(s):* 07/26/2021 8:30 am - Matt Campo MD at Main Office * 06/28/2021 2:00 pm - ECHO at Main Office 04/08/2021 - Matt Campo MD* R07.89 Other chest pain* Recommendations:* Prolonged distress with serial negative troponin I levels against myocardial ischemia as a cause of this problem. However, she does have multiple coronary risk factors, an abnormal EKG and rheumatoid arthritis with nonsteroidal anti-inflammatory drug use (all of which increase her risk for cardiovascular event). Would recommend and objective definition of her coronary prognosis. In the absence of significant repolarization abnormality, a regular treadmill study has been advised. Currently receiving protective lisinopril. * I45.19 Other right bundle-branch block* New Xrays:* US Echocardiogram Transthoracic W Doppler And Color Flow, Scheduled: 06/28/21 * Recommendations:* Apparently recently detected. May well be a manifestation of pulmonary hypertension, right heart strain and enlargement with her weight problem and obstructive sleep apnea. An echocardiogram/Doppler study has been requested to define cardiac chamber sizes, pulmonary arterial and central venous pressures. Her treadmill study will allow us to define the functional integrity of antegrade AV conduction. * R94.31 Abnormal electrocardiogram [ECG] [EKG]* Recommendations:* In addition to her conduction disturbance, left atrial conduction abnormality and nonspecific primary repolarization abnormalities suspected to be due to her we ight problem and hypertension. Further recommendations will depend on noninvasive cardiac test findings. * I10 Essential (primary) hypertension* Recommendations:* Some effort dyspnea and lower leg swelling but no other symptoms or signs of congestion. Current blood pressure would be considered adequately controlled on her combination therapy. Recent blood work confirms electrolyte balance with normal renal function. Would emphasize the importance of salt and caloric restriction along with regular low level aerobic exercise i.e. walking at her own pace for least 30 minutes daily. Should avoid cooking with salt, adding salt to food at the table, or eating foods that taste salty. Have encouraged a low carbohydrate diet (avoiding bread, potatoes, pasta, rice, fruit, candy, desserts, and beer etc.) as these, along with regular exercise, have been shown to be more effective in leading to weight loss. No change would be advised to her current lisinopril and hydrochlorothiazide. * R60.0 Localized edema* Recommendations:* Suspected to be on the basis of peripheral venous insufficiency and her weight problem rather than right heart failure. Despite history of coagulation disorder apparently is not experienced deep venous thrombosis, or pulmonary embolism. I am convinced this will improve with dietary measures and weight reduction. Her echocardiogram should allow our evaluation of right heart chamber sizes, pulmonary arterial and central venous pressure. * G47.33 Obstructive sleep apnea (adult) (pediatric)* Recommendations:* This may be contributing to her EKG appearance as alluded to above. We have impressed upon her the importance of weight loss and compliance with her CPAP therapy to protect her central nervous and cardiovascular systems. Pressure therapy as directed by pulmonary medicine. * All * Comments:* I will ensure that the aforementioned test findings are reported to you along with any further recommendations. Thank you for allowing me to participate in the care of your patient. Best regards. * Follow up:* Clinic visit post testing Functional Status Functional Condition Comment Date Status Independent with all ADL's Activ e Mental Status Description No Information Available Referrals Description No Information Available
--- OUTSIDE RECORDS SUMMARY | 2021-07-12 10:41 | CCD | Continuity of Care Document ---
Author Author Teri Nuclear/Reg Luz Kenyon Lindsey Organization Unknown Address [address] [place] [address], [facility] [address] Phone [phone] Care Team Providers Care Auto Engine Mechanic Name Role Phone Keven Sweeney PA-C AUTM [phone] Denise Ho RADIOLOGY SPECIAL PROCEDURE TECH AUTM [phone] Hailee Roger RADIOLOGY SPECIAL PROCEDURE TECH AUTM [phone] Consuelo Bermudez MD AUTM [phone] Problems Active Problems Provider Date Obstructive sleep [...] 0.6-1.3 Procedures Date Code Description Status 06/05/2021 24514 Stress Echocardiography Complete d 06/05/2021 53104 Doppler Color Flow Velocity Jens ing Completed 05/21/2021 77623 Treadmill/Pharmacological Monito ring Completed 04/08/2021 29495 Office/Outpatient New Moderate M DM 45-59 Minutes Completed 04/08/2021 56104 ECG 12-Lead Completed Medical Devices Description No [...]
--- OUTSIDE RECORDS SUMMARY | 2021-07-12 10:41 | CCD | Continuity of Care Document ---
Author Author Teri Nuclear/Reg Luz Kenyon Lindsey Organization Unknown Address [address] [place] [address], [facility] [place] [address] Phone [phone] Care Team Providers Care Template Maker Name Role Phone Keven Sweeney PA-C AUTM [phone] Denise Ho TALENT ACQUISITION MANAGER AUTM [phone] Hailee Roger TALENT ACQUISITION MANAGER AUTM [phone] Consuelo Bermudez MD AUTM [phone] Problems Active Problems Provider Date Obstructive sleep [...] 0.6-1.3 Procedures Date Code Description Status 06/05/2021 44183 Stress Echocardiography Complete d 06/05/2021 76140 Doppler Color Flow Velocity Jens ing Completed 05/21/2021 46786 Treadmill/Pharmacological Monito ring Completed 04/08/2021 59513 Office/Outpatient New Moderate M DM 45-59 Minutes Completed 04/08/2021 04590 ECG 12-Lead Completed Medical Devices Description No [...]
--- OUTSIDE RECORDS SUMMARY | 2021-07-12 10:41 | CCD | Continuity of Care Document ---
Author Author Luz ROGER N.PSindy Organization Unknown Address [address] [place] [address] Phone [phone] Care Team Providers Care Weight Loss Physician Name Role Phone Denise Ho AUTM [phone] Problems Description No Information Available Social History Type Date Description Comments Sex Unknown Tobacco Use Start: Unknown End: Patient is a former smoker 1/2 pack per day hx Smoking Status Reviewed: 04/19/21 Patient is a former smoker 1/ 2 pack per day hx Allergies, Adverse Reactions, Alerts Active Allergies Criticality Reaction | Severity Comments Date NKDA Unable to assess criticality 11/23/2018 Seasonal Unable to assess criticality 11/23/2018 Medications Active Medications SIG Qnty Indications Ordering Provide r Date Tylenol Extra Strength 500mg Table ts 2 tabs by mouth 2-3 times per day Unknown Glucosamine Chondroitin 500 Complex 500Comp Capsules 1 cap by mouth every day Unknown Azelastine HCL (Nasal) 0.1% Soluti on 1-2 sprays in each nostril once daily as needed Unkn own CPAP 15cm Hailee Berman, N.P. Ibuprofen 200mg Capsules 1 tab by mouth as needed Unknown Lisinopril 40mg Tablets 1 tab by mouth every day Unknown Hydrochlorothiazide 12.5mg Capsules Brenda Barnes, F.N.P. Hydroxychloroquine Sulfate 200mg T ablets 1 tab by mouth every day Unknown 0 Immunizations Description No Information Available Vital Signs Date Vital Result Comment 04/19/2021 11:02am BP Systolic 122 mmHg BP Diastolic 74 mmHg Heart Rate 71 /min O2 % BldC Oximetry 95 % Height 65 inches 5'5" Weight 236.50 lb BMI (Body Mass Index) 39.4 kg/m2 [place] Body Weight 125 lb Weight 107.276 kg BSA (Body Surface Area) 2.12 m2 04/27/2020 11:35am BP Systolic 122 mmHg BP Diastolic 78 mmHg Heart Rate 69 /min O2 % BldC Oximetry 97 % Body Temperature 98.4 F Height 65 inches 5'5" Weight 224.50 lb BMI (Body Mass Index) 37.4 kg/m2 [place] Body Weight 125 lb Weight 101.833 kg BSA (Body Surface Area) 2.08 m2 Results Description No Information Available Procedures Date Code Description Status 04/19/2021 98702 Office/Outpatient Established Lo w MDM 20-29 Min Completed Medical Devices Description No Information Available Encounters Type Date Location Provider Dx Diagnosis Office Visit 04/19/2021 11:15a [facility] Pulmonary/Thoracic Brandon Roger N.PSindy G47.33 Obstructive sleep apnea (adult) (pediatr ic) Assessments Date Code Description Provider 04/19/2021 G47.33 Obstructive sleep apnea (adult) (pediatric) Hailee Roger, N.P. Plan of Treatment Future Appointment(s):* 04/25/2022 2:45 pm - Hailee Roger, N.PSindy at [facility] Pulmonary/Thoracic 04/19/2021 - Hailee Roger N.P.* G47.33 Obstructive sleep apnea (adult) (pediatric) * * Comments:* 1. No changes were made to the CPAP pressure at today's visit. 2. The patient is aware to call with any problems related to CPAP use, snoring through the mask or return of daytime sleepiness. 3. Per the patient's request, a CPAP supply order has been sent to the [email or web address]. * Follow up:* 1. Follow up in one year to reassess CPAP compliance or sooner should problems develop. Functional Status Functional Condition Comment Date Status Independent with all ADL's Activ e Independent with all IADL's Acti ve Mental Status Mental Condition Comment Date Status None Active Can understand information Activ e Referrals Description No Information Available
--- OUTSIDE RECORDS SUMMARY | 2021-07-12 10:41 | CCD | Continuity of Care Document ---
Author Author Luz POLANCO [place] Organization Unknown Address [address] [place] [address] Phone [phone] Care Team Providers Care Packager Name Role Phone [facility] AUTM [phone] [employer]undo [employer] AUTM [phone] Problems Active Problems Provider Date Acute sinusitis [...] 3 Yrs And Above For Intramuscular Use 70391 Given 02/09/2008 Tetanus (Td) Vaccine 7Yrs> Q2037 [...] H/L Range Note Laboratory test finding 06/08/2021 [place] [id number] [phone] Urine Culture FULL REPORT IN L <SEE NOTE> Normal 1, 2 1 Rx Cephlex 2 FULL REPORT IN LAB NOTES (eC W and [facility]). NO GROWTH CLINICAL SIGNIFICANCE 2 OR MORE ORGANISMS Procedures Date Code Description Status 06/08/2021 73807 Office/Outpatient Established Lo w MDM 20-29 Min Completed 01/04/2021 35023 Office/Outpatient Established Lo w MDM 20-29 Min [...]
--- OUTSIDE RECORDS SUMMARY | 2021-07-12 10:41 | CCD | Continuity of Care Document ---
Author Author Luz POLANCO [place] Organization Unknown Address [address] [place] [address] Phone [phone] Care Team Providers Care Enterprise Systems Administrator Name Role Phone [facility] AUTM [phone] R[employer]undo [employer] AUTM [phone] Problems Active Problems Provider Date Acute sinusitis [...] 3 Yrs And Above For Intramuscular Use [address]40 Given 02/09/2008 Tetanus (Td) Vaccine 7Yrs> Q2037 [...] H/L Range Note Laboratory test finding 06/08/2021 [facility] [address] [place] [id number] [phone] Urine Culture <pending> Procedures Date Code Description Status 06/08/2021 26843 Office/Outpatient Established Lo w MDM 20-29 Min Completed 01/04/2021 25562 Office/Outpatient Established Lo w MDM 20-29 Min [...]
--- OUTSIDE RECORDS SUMMARY | 2021-07-12 10:41 | CCD | Continuity of Care Document ---
Author Author Teri Nuclear/Reg Kostas Luz Lindsey Organization Unknown Address [address] [place] [address], [place] [address] Phone [phone] Care Team Providers Care Damage Adjuster Name Role Phone Keven Sweeney PA-C AUTM [phone] Denise Ho GOVERNMENT RELATIONS ANALYST AUTM [phone] Hailee Roger GOVERNMENT RELATIONS ANALYST AUTM [phone] Consuelo Bermudez MD AUTM [phone] Problems Active Problems Provider Date Obstructive sleep [...] Joint Pain bilateral k nees and shoulders Allergies, Adverse Reactions, Alerts Description No Known Drug Allergies Medications Active [...] once daily 90caps Misha ELIZABETH MD, Aggiei alf F 02/16/2020 Lisinopril 40mg Tablets 1 by [...] mg/dL 0.6-1.3 Procedures Date Code Description Status 05/21/2021 25927 Treadmill/Pharmacological Monito ring Completed 04/08/2021 21760 Office/Outpatient New Moderate M DM 45-59 Minutes Completed 04/08/2021 47352 ECG 12-Lead Completed Medical Devices Description No Information Available Encounters Type Date Location Provider Dx Diagnosis Office Visit 04/08/2021 10:30a Main Office Matt Campo MD R07.89 Other chest pain I45.19 Other right bundle-branch bl ock R94.31 Abnormal electrocardiogram [ ECG] [EKG] I10 Essential (primary) hyperten earl R60.0 Localized edema G47.33 Obstructive sleep apnea (spencer lt) (pediatric) Assessments Date Code Description Provider 05/21/2021 R07.2 Precordial pain Stress Nuclear/R eg [...]
--- OUTSIDE RECORDS SUMMARY | 2021-07-12 10:41 | CCD | Continuity of Care Document ---
Author Author Teri Nuclear/Reg Luz Kenyon Lindsey Organization Unknown Address [address] [place] [address], [facility] [address] Phone [phone] Care Team Providers Care Enterprise Records Analyst Name Role Phone Keven Sweeney PA-C AUTM [phone] Denise Ho HAT BLOCKER AUTM [phone] Hailee Roger HAT BLOCKER AUTM [phone] Consuelo Bermudez MD AUTM [phone] Problems Active Problems Provider Date Obstructive sleep [...] 0.6-1.3 Procedures Date Code Description Status 05/21/2021 08302 Treadmill/Pharmacological Monito ring Completed 04/08/2021 81676 Office/Outpatient New Moderate M DM 45-59 Minutes Completed 04/08/2021 51106 ECG 12-Lead Completed Medical Devices Description No [...]
--- OUTSIDE RECORDS SUMMARY | 2021-07-12 10:42 | CCD ---
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 Name Role Phone Vic, Denise NET PROGRAMMER Unavailable Unavailable Vic, Denise NET PROGRAMMER Unavailable Unavailable Vic, Denise NET PROGRAMMER Unavailable Unavailable Vic, Denise NET PROGRAMMER Unavailable Unavailable Vic, Denise NET PROGRAMMER Unavailable Unavailable Vic, Denise NET PROGRAMMER Unavailable Unavailable Vic, Denise NET PROGRAMMER Unavailable Unavailable Vic, Denise NET PROGRAMMER Unavailable Unavailable Vic, Denise NET PROGRAMMER Unavailable Unavailable Vic, Denise NET PROGRAMMER Unavailable Unavailable Vic, Denise NET PROGRAMMER Unavailable Unavailable Vic, Denise NET PROGRAMMER Unavailable Unavailable Vic, Denise NET PROGRAMMER Unavailable Unavailable Vic, Denise NET PROGRAMMER Unavailable Unavailable Vic, Denise NET PROGRAMMER Unavailable Unavailable Vic, Denise NET PROGRAMMER Unavailable Unavailable Vic, Denise NET PROGRAMMER Unavailable Unavailable Vic, Denise NET PROGRAMMER Unavailable Unavailable Vic, Denise NET PROGRAMMER Unavailable Unavailable Vic, Denise NET PROGRAMMER Unavailable Unavailable Vic, Denise NET PROGRAMMER Unavailable Unavailable Vic, Denise NET PROGRAMMER Unavailable Unavailable Vic, Denise NET PROGRAMMER Unavailable Unavailable Vic, Denise NET PROGRAMMER Unavailable Unavailable Vic, Denise NET PROGRAMMER Unavailable Unavailable Vic, Denise NET PROGRAMMER Unavailable Unavailable Vic, Denise NET PROGRAMMER Unavailable Unavailable Vic, Denise NET PROGRAMMER Unavailable Unavailable Vic, Denise NET PROGRAMMER Unavailable Unavailable Vic, Denise NET PROGRAMMER Unavailable Unavailable Vic, Denise NET PROGRAMMER Unavailable Unavailable Vic, Denise NET PROGRAMMER Unavailable Unavailable Vic, Denise NET PROGRAMMER Unavailable Unavailable Vic, Denise NET PROGRAMMER Unavailable Unavailable Vic, Denise NET PROGRAMMER Unavailable Unavailable LETTIERE, A KRISTEL PA Unavailable Unavailable LETTIERE, A KRISTEL PA Unavailable Unavailable LETTIERE, A KRISTEL PA Unavailable Unavailable LETTIERE, A KRISTEL PA Unavailable Unavailable LETTIERE, A KRISTEL PA Unavailable Unavailable LETTIERE, A KRISTEL PA Unavailable Unavailable LETTIERE, A KRISTEL PA Unavailable Unavailable LETTIERE, A KRISTEL PA Unavailable Unavailable LETTIERE, A KRISTEL PA Unavailable Unavailable LETTIERE, A KRISTLE PA Unavailable Unavailable LETTIERE, A KRISTEL PA Unavailable Unavailable LETTIERE, A KRISTEL PA Unavailable Unavailable LETTIERE, A KRISTEL PA Unavailable Unavailable LETTIERE, A KRISTEL PA Unavailable Unavailable LETTIERE, A KRISTEL PA Unavailable Unavailable LETTIERE, A KRISTEL PA Unavailable Unavailable LETTIERE, A KRISTEL PA Unavailable Unavailable LETTIERE, A KRISTEL PA Unavailable Unavailable LETTIERE, A KRISTEL PA Unavailable Unavailable LETTIERE, A KRISTEL PA Unavailable Unavailable LETTIERE, A KRISTEL PA Unavailable Unavailable LETTIERE, A KRISTEL PA Unavailable Unavailable LETTIERE, A KRISTEL PA Unavailable Unavailable LETTIERE, A KRISTEL PA Unavailable Unavailable LETTIERE, A KRISTEL PA Unavailable Unavailable LETTIERE, A KRISTEL PA Unavailable Unavailable LETTIERE, A KRISTEL PA Unavailable Unavailable LETTIERE, A KRISTEL PA Unavailable Unavailable LETTIERE, A KRISTEL PA Unavailable Unavailable LETTIERE, A KRISTEL PA Unavailable Unavailable LETTIERE, A KRISTEL PA Unavailable Unavailable PAREDES, E ERLIN LEONARD Unavailable Unavailable PAREDES, E ERLIN LEONARD Unavailable Unavailable PAREDES, E ERLIN LEONARD Unavailable Unavailable PAREDES, E ERLIN LEONARD Unavailable Unavailable PAREDES, E ERLIN LEONARD Unavailable Unavailable PAREDES, E ERLIN LEONARD Unavailable Unavailable PAREDES, E ERLIN LEONARD Unavailable Unavailable PAREDES, E ERLIN LEONARD Unavailable Unavailable PAREDES, E ERLIN LEONARD Unavailable Unavailable PAREDES, E ERLIN LEONARD Unavailable Unavailable PAREDES, E ERLIN LEONARD Unavailable Unavailable PAREDES, E ERLIN LEONARD Unavailable Unavailable PAREDES, E ERLIN LEONARD Unavailable Unavailable PAREDES, E ERLIN LEONARD Unavailable Unavailable PAREDESLindsey MD Unavailable Unavailable PAREDESLindsey MD Unavailable Unavailable PAREDES E ERLIN LEONARD Unavailable Unavailable PAREDES E ERLIN LEONARD Unavailable Unavailable PAREDES E ERLIN LEONARD Unavailable Unavailable PAREDES E ERLIN LEONARD Unavailable Unavailable PAREDES E ERLIN LEONARD Unavailable Unavailable PAREDES E ERLIN LEONARD Unavailable Unavailable PAREDES E ERLIN LEONARD Unavailable Unavailable PAREDES E ERLIN LEONARD Unavailable Unavailable PAREDES E ERLIN LEONARD Unavailable Unavailable PAREDES E ERLIN LEONARD Unavailable Unavailable PAREDES E ERLIN LEONARD Unavailable Unavailable PAREDES E ERLIN LEONARD Unavailable Unavailable PAREDESLindsey MD Unavailable Unavailable PAREDESLindsey MD Unavailable Unavailable PAREDESLindsey MD Unavailable Unavailable PAREDES E ERLIN LEONARD Unavailable Unavailable PAREDES E ERLIN LEONARD Unavailable Unavailable PAREDES, E ERLIN LEONARD Unavailable Unavailable PAREDES, E ERLIN LEONARD Unavailable Unavailable PAREDES, E ERLIN LEONARD Unavailable Unavailable PAREDES, E ERLIN LEONARD Unavailable Unavailable PAREDES E ERLIN LEONARD Unavailable Unavailable PAREDES, E ERLIN LEONARD Unavailable Unavailable PAREDES E ERLIN LEONARD Unavailable Unavailable PAREDES E ERLIN LEONARD Unavailable Unavailable PAREDES E ERLIN LEONARD Unavailable Unavailable PAREDES E ERLIN LEONARD Unavailable Unavailable PAREDESLindsey MD Unavailable Unavailable PAREDESLindsey MD Unavailable Unavailable PAREDESLindsey MD Unavailable Unavailable PAREDESLindsey MD Unavailable Unavailable PAREDES E ERLIN LEONARD Unavailable Unavailable PAREDES E ERLIN LEONARD Unavailable Unavailable PAREDES E ERLIN LEONARD Unavailable Unavailable PAREDES E ERLIN LEONARD Unavailable Unavailable PAREDES E ERLIN LEONARD Unavailable Unavailable PAREDES E ERLIN LEONARD Unavailable Unavailable PAREDESLindsey MD Unavailable Unavailable PICKERAL JR, J SAYRA PA-C Unavailable Unavailable PICKERAL JR, J SAYRA PA-C Unavailable Unavailable PICKERAL JR, J SAYRA PA-C Unavailable Unavailable PICKERAL JR, J SAYRA PA-C Unavailable Unavailable PICKERAL JR, J SAYRA PA-C Unavailable Unavailable PICKERAL JR, J SAYRA PA-C Unavailable Unavailable PICKERAL JR, J SAYRA PA-C Unavailable Unavailable PICKERAL JR, J SAYRA PA-C Unavailable Unavailable PICKERAL JR, J SAYRA PA-C Unavailable Unavailable PICKERAL JR, J SAYRA PA-C Unavailable Unavailable PICKERAL JR, J SAYRA PA-C Unavailable Unavailable PICKERAL JR, J SAYRA PA-C Unavailable Unavailable PICKERAL JR, J SAYRA PA-C Unavailable Unavailable PICKERAL JR, J SAYRA PA-C Unavailable Unavailable PICKERAL JR, J SAYRA PA-C Unavailable Unavailable PICKERAL JR, J SAYRA PA-C Unavailable Unavailable PICKERAL JR, J SAYRA PA-C Unavailable Unavailable PICKERAL JR, J SAYRA PA-C Unavailable Unavailable PICKERAL JR, J SAYRA PA-C Unavailable Unavailable PICKERAL JR, J SAYRA PA-C Unavailable Unavailable PICKERAL JR, J SAYRA PA-C Unavailable Unavailable PICKERAL JR, J SAYRA PA-C Unavailable Unavailable PICKERAL JR, J SAYRA PA-C Unavailable Unavailable PICKERAL JR, J SAYRA PA-C Unavailable Unavailable PICKERAL JR, J SAYRA PA-C Unavailable Unavailable PICKERAL JR, J SAYRA PA-C Unavailable Unavailable PICKERAL JR, J SAYRA PA-C Unavailable Unavailable Pikarsky, Renan AIRBORNE ELECTRONICS ANALYST Unavailable Unavailable Pikarsky, Renan AIRBORNE ELECTRONICS ANALYST Unavailable Unavailable Pikarsky, Renan AIRBORNE ELECTRONICS ANALYST Unavailable Unavailable Pikarsky, Renan AIRBORNE ELECTRONICS ANALYST Unavailable Unavailable Pikarsky, Renan AIRBORNE ELECTRONICS ANALYST Unavailable Unavailable Pikarsky, Renan AIRBORNE ELECTRONICS ANALYST Unavailable Unavailable Pikarsky, Renan AIRBORNE ELECTRONICS ANALYST Unavailable Unavailable Pikarsky, Renan AIRBORNE ELECTRONICS ANALYST Unavailable Unavailable Pikarsky, Renan AIRBORNE ELECTRONICS ANALYST Unavailable Unavailable Pikarsky, Renan AIRBORNE ELECTRONICS ANALYST Unavailable Unavailable Pikarsky, Renan AIRBORNE ELECTRONICS ANALYST Unavailable Unavailable Pikarsky, Renan AIRBORNE ELECTRONICS ANALYST Unavailable Unavailable Pikarsky, Renan AIRBORNE ELECTRONICS ANALYST Unavailable Unavailable Pikarsky, Renan AIRBORNE ELECTRONICS ANALYST Unavailable Unavailable Pikarsky, Renan AIRBORNE ELECTRONICS ANALYST Unavailable Unavailable Pikarsky, Renan AIRBORNE ELECTRONICS ANALYST Unavailable Unavailable Pikarsky, Renan AIRBORNE ELECTRONICS ANALYST Unavailable Unavailable Pikarsky, Renan AIRBORNE ELECTRONICS ANALYST Unavailable Unavailable Pikarsky, Renan AIRBORNE ELECTRONICS ANALYST Unavailable Unavailable Pikarsky, Renan AIRBORNE ELECTRONICS ANALYST Unavailable Unavailable Pikarsky, Renan AIRBORNE ELECTRONICS ANALYST Unavailable Unavailable Pikarsky, Renan AIRBORNE ELECTRONICS ANALYST Unavailable Unavailable Pikarsky, Renan AIRBORNE ELECTRONICS ANALYST Unavailable Unavailable Pikarsky, Renan AIRBORNE ELECTRONICS ANALYST Unavailable Unavailable Pikarsky, Renan AIRBORNE ELECTRONICS ANALYST Unavailable Unavailable Pikarsky, Renan AIRBORNE ELECTRONICS ANALYST Unavailable Unavailable Pikarsky, Renan AIRBORNE ELECTRONICS ANALYST Unavailable Unavailable Pikarsky, Renan AIRBORNE ELECTRONICS ANALYST Unavailable Unavailable Pikarsky, Renan AIRBORNE ELECTRONICS ANALYST Unavailable Unavailable Pikarsky, Renan AIRBORNE ELECTRONICS ANALYST Unavailable Unavailable Emilie Ambrose PA Unavailable Unavailable AmbroseEmilie layne PA Unavailable Unavailable AmbroseEmilie layne PA Unavailable Unavailable AmbroseEmilie layne PA Unavailable Unavailable AmbroseEmilie layne PA Unavailable Unavailable AmbroseEmilie layne PA Unavailable Unavailable Ambrose, Emilie Leatha PA Unavailable Unavailable Ambrose, Emilie Leatha PA Unavailable Unavailable Ambrose, Emilie Leatha PA Unavailable Unavailable Ambrose, Emilie Leatha PA Unavailable Unavailable AGUSTÍN, JADYN CARLOS NET PROGRAMMER-C Unavailable Unavailable AGUSTÍN, JADYN CARLOS NET PROGRAMMER-C Unavailable Unavailable AGUSTÍN, JADYN CARLOS NET PROGRAMMER-C Unavailable Unavailable AGUSTÍN, JADYN CARLOS NET PROGRAMMER-C Unavailable Unavailable AGUSTÍN, JADYN CARLOS NET PROGRAMMER-C Unavailable Unavailable AGUSTÍN, JADYN CARLOS NET PROGRAMMER-C Unavailable Unavailable AGUSTÍN, JADYN CARLOS NET PROGRAMMER-C Unavailable Unavailable AGUSTÍN, JADYN CARLOS NET PROGRAMMER-C Unavailable Unavailable AGUSTÍN, JADYN CARLOS NET PROGRAMMER-C Unavailable Unavailable AGUSTÍN, JADYN CARLOS NET PROGRAMMER-C Unavailable Unavailable AGUSTÍN, JADYN CARLOS NET PROGRAMMER-C Unavailable Unavailable AGUSTÍN, JADYN CARLOS NET PROGRAMMER-C Unavailable Unavailable AGUSTÍN, JADYN CARLOS NET PROGRAMMER-C Unavailable Unavailable AGUSTÍN, JADYN CARLOS NET PROGRAMMER-C Unavailable Unavailable AGUSTÍN, JADYN CARLOS NET PROGRAMMER-C Unavailable Unavailable AGUSTÍN, JADYN CARLOS NET PROGRAMMER-C Unavailable Unavailable AGUSTÍN, JADYN CARLOS NET PROGRAMMER-C Unavailable Unavailable Pasniciuc, Kd Cordero MD Unavailable Unavailable Pasniciuc, Kd Cordero MD Unavailable Unavailable Pasniciuc, Kd Cordero MD Unavailable Unavailable Pasniciuc, Kd Cordero MD Unavailable Unavailable Pasniciuc, Kd Cordero MD Unavailable Unavailable Pasniciuc, Kd Cordero MD Unavailable Unavailable Pasniciuc, Kd Cordero MD Unavailable Unavailable Pasniciuc, Kd Cordero MD Unavailable Unavailable Pasniciuc, Kd Cordero MD Unavailable Unavailable Pasniciuc, Kd Cordero MD Unavailable Unavailable Pasniciuc, Kd Cordero MD Unavailable Unavailable Pasniciuc, Kd Cordero MD Unavailable Unavailable Pasniciuc, Kd Cordero MD Unavailable Unavailable Pasniciuc, Kd Cordero MD Unavailable Unavailable Pasniciuc, Kd Cordero MD Unavailable Unavailable Pasniciuc, Kd Cordero MD Unavailable Unavailable Pasniciuc, Kd Cordero MD Unavailable Unavailable Pasniciuc, Kd Cordero MD Unavailable Unavailable Pasniciuc, Kd Cordero MD Unavailable Unavailable Pasniciuc, Kd Cordero MD Unavailable Unavailable Pasniciuc, Kd Cordero MD Unavailable Unavailable Pasniciuc, Kd Cordero MD Unavailable Unavailable Pasniciuc, Kd Cordero MD Unavailable Unavailable Pasniciuc, Kd Cordero MD Unavailable Unavailable Pasniciuc, Kd Cordero MD Unavailable Unavailable Pasniciuc, Kd Cordero MD Unavailable Unavailable Pasniciuc, Kd Cordero MD Unavailable Unavailable Pasniciuc, Kd Cordero MD Unavailable Unavailable Pasniciuc, Kd Cordero MD Unavailable Unavailable Pasniciuc, Kd Cordero MD Unavailable Unavailable Pasniciuc, Kd Cordero MD Unavailable Unavailable Pasniciuc, Kd Cordero MD Unavailable Unavailable Pasniciuc, Kd Cordero MD Unavailable Unavailable Pasniciuc, Kd Cordero MD Unavailable Unavailable Pasniciuc, Kd Cordero MD Unavailable Unavailable Pasniciuc, Kd Cordero MD Unavailable Unavailable Pasniciuc, Kd Cordero MD Unavailable Unavailable Pasniciuc, Kd Cordero MD Unavailable Unavailable Pasniciuc, Kd Cordero MD Unavailable Unavailable Pasniciuc, Kd Cordero MD Unavailable Unavailable Pasniciuc, Kd Cordero MD Unavailable Unavailable Pasniciuc, Kd Cordero MD Unavailable Unavailable Pasniciuc, Kd Cordero MD Unavailable Unavailable Pasniciuc, Kd Cordero MD Unavailable Unavailable Pasniciuc, Kd Cordero MD Unavailable Unavailable Pasniciuc, Kd Cordero MD Unavailable Unavailable Pasniciuc, Kd Cordero MD Unavailable Unavailable Pasniciuc, Kd Cordero MD Unavailable Unavailable Pasniciuc, Kd Cordero MD Unavailable Unavailable Pasniciuc, Kd Cordero MD Unavailable Unavailable OSKAR ALVES MD Unavailable Unavailable OSKAR ALVES MD Unavailable Unavailable OSKAR ALVES MD Unavailable Unavailable OSKAR ALVES MD Unavailable Unavailable OSKAR ALVES MD Unavailable Unavailable OSKAR ALVES MD Unavailable Unavailable OSKAR ALVES MD Unavailable Unavailable OSKAR ALVES MD Unavailable Unavailable OSKAR ALVES MD Unavailable Unavailable OSKAR ALVES MD Unavailable Unavailable OSKAR ALVES MD Unavailable Unavailable OSKAR ALVES MD Unavailable Unavailable OSKAR ALVES MD Unavailable Unavailable OSKAR ALVES MD Unavailable Unavailable OSKAR ALVES MD Unavailable Unavailable OSKAR ALVES MD Unavailable Unavailable OSKAR ALVES MD Unavailable Unavailable OSKAR ALVES MD Unavailable Unavailable OSKAR ALVES MD Unavailable Unavailable OSKAR ALVES MD Unavailable Unavailable OSKAR ALVES MD Unavailable Unavailable KHAIRALLAH, RAMZI MD Unavailable Unavailable KHAIRALLAH, RAMZI MD Unavailable Unavailable KHAIRALLAH, RAMZI MD Unavailable Unavailable KHAIRALLAH, RAMZI MD Unavailable Unavailable KHAIRALLAH, RAMZI MD Unavailable Unavailable KHAIRALLAH, RAMZI MD Unavailable Unavailable KHAIRALLAH, RAMZI MD Unavailable Unavailable KHAIRALLAH, RAMZI MD Unavailable Unavailable KHAIRALLAH, RAMZI MD Unavailable Unavailable KHAIRALLAH, RAMZI MD Unavailable Unavailable KHAIRALLAH, RAMZI MD Unavailable Unavailable KHAIRALLAH, RAMZI MD Unavailable Unavailable KHAIRALLAH, RAMZI MD Unavailable Unavailable KHAIRALLAH, RAMZI MD Unavailable Unavailable KHAIRALLAH, RAMZI MD Unavailable Unavailable KHAIRALLAH, RAMZI MD Unavailable Unavailable KHAIRALLAH, RAMZI MD Unavailable Unavailable KHAIRALLAH, RAMZI MD Unavailable Unavailable KHAIRALLAH, RAMZI MD Unavailable Unavailable KHAIRALLAH, RAMZI MD Unavailable Unavailable KHAIRALLAH, RAMZI MD Unavailable Unavailable KHAIRALLAH, RAMZI MD Unavailable Unavailable KHAIRALLAH, RAMZI MD Unavailable Unavailable KHAIRALLAH, RAMZI MD Unavailable Unavailable KHAIRALLAH, RAMZI MD Unavailable Unavailable KHAIRALLAH, RAMZI MD Unavailable Unavailable KHAIRALLAH, RAMZI MD Unavailable Unavailable KHAIRALLAH, RAMZI MD Unavailable Unavailable KHAIRALLAH, RAMZI MD Unavailable Unavailable KHAIRALLAH, RAMZI MD Unavailable Unavailable KHAIRALLAH, RAMZI MD Unavailable Unavailable KHAIRALLAH, RAMZI MD Unavailable Unavailable KHAIRALLAH, RAMZI MD Unavailable Unavailable KHAIRALLAH, RAMZI MD Unavailable Unavailable KHAIRALLAH, RAMZI MD Unavailable Unavailable KHAIRALLAH, RAMZI MD Unavailable Unavailable KHAIRALLAH, RAMZI MD Unavailable Unavailable KHAIRALLAH, RAMZI MD Unavailable Unavailable KHAIRALLAH, RAMZI MD Unavailable Unavailable KHAIRALLAH, RAMZI MD Unavailable Unavailable KHAIRALLAH, RAMZI MD Unavailable Unavailable KHAIRALLAH, RAMZI MD Unavailable Unavailable KHAIRALLAH, RAMZI MD Unavailable Unavailable KHAIRALLAH, RAMZI MD Unavailable Unavailable KHAIRALLAH, RAMZI MD Unavailable Unavailable KHAIRALLAH, RAMZI MD Unavailable Unavailable KHAIRALLAH, RAMZI MD Unavailable Unavailable KHAIRALLAH, RAMZI MD Unavailable Unavailable KHAIRALLAH, RAMZI MD Unavailable Unavailable KHAIRALLAH, RAMZI MD Unavailable Unavailable KHAIRALLAH, RAMZI MD Unavailable Unavailable KHAIRALLAH, RAMZI MD Unavailable Unavailable KHAIRALLAH, RAMZI MD Unavailable Unavailable KHAIRALLAH, RAMZI MD Unavailable Unavailable KHAIRALLAH, RAMZI MD Unavailable Unavailable KHAIRALLAH, RAMZI MD Unavailable Unavailable KHAIRALLAH, RAMZI MD Unavailable Unavailable KHAIRALLAH, RAMZI MD Unavailable Unavailable KHAIRALLAH, RAMZI MD Unavailable Unavailable KHAIRALLAH, RAMZI MD Unavailable Unavailable KHAIRALLAH, RAMZI MD Unavailable Unavailable KHAIRALLAH, RAMZI MD Unavailable Unavailable KHAIRALLAH, RAMZI MD Unavailable Unavailable KHAIRALLAH, RAMZI MD Unavailable Unavailable KHAIRALLAH, RAMZI MD Unavailable Unavailable KHAIRALLAH, RAMZI MD Unavailable Unavailable KHAIRALLAH, RAMZI MD Unavailable Unavailable KHAIRALLAH, RAMZI MD Unavailable Unavailable Re-disclosure Warning The records that you are about to access may contain information from federally-assisted alcohol or drug abuse programs. If such information is present, then the following federally mandated warning applies: This information has been disclosed to you from records protected by federal confidentiality rules (42 CFR part 2). The federal rules prohibit you from making any further disclosure of this information unless further disclosure is expressly permitted by the written consent of the person to whom it pertains or as otherwise permitted by 42 CFR part 2. A general authorization for the release of medical or other information is NOT sufficient for this purpose. The Federal rules restrict any use of the information to criminally investigate or prosecute any alcohol or drug abuse patient.The records that you are about to access may contain highly sensitive health information, the redisclosure of which is protected by Article 27-F of the [facility] Public Health law. If you continue you may have access to information: Regarding HIV / AIDS; Provided by facilities licensed or operated by the [facility] Office of Mental Health; or Provided by the [facility] Office for People With Developmental Disabilities. If such information is present, then the following [facility] mandated warning applies: This information has been disclosed to you from confidential records which are protected by state law. State law prohibits you from making any further disclosure of this information without the specific written consent of the person to whom it pertains, or as otherwise permitted by law. Any unauthorized further disclosure in violation of state law may result in a fine or longterm sentence or both. A general authorization for the release of medical or other information is NOT sufficient authorization for further disc losure. Family History Family Member Name Family Member Gender Family Member Status Date o f Status Description Data Source(s) Unknown Male Problem [facility] ([facility]) Unknown Female Problem (finding) 04/22/2018 12:00:00 AM EDT [facility] ([facility]) Unknown Female Problem (finding) 04/22/2018 12:00:00 AM EDT [facility] ([facility]) Unknown Male Problem [facility] ([facility] ) Unknown Male Problem [facility] ([facility]) () Unknown Male Problem [facility] ([facility]) Encounters Encounter Providers Location Date Indications Data Source(s ) Outpatient Attender: KRISTEL murdocky 06/08/2021 09:15:00 AM EDT [facility] ([facility]) Outpatient Attender: CARLOS Gibbs/Christofer/Cain/Adrienne mendosa 04/19/2021 11:15:00 AM EDT [facility] Outpatient Attender: ERLIN PAREDES MD Main Office 04/08/2021 10:30:00 AM EDT [facility] ([facility]) Outpatient Attender: SAYRA Mcnamara 0 02/21/2021 11:20:00 AM EDT [facility] ([facility] ) Outpatient Attender: SAYRA Mcnamara 0 01/18/2021 11:20:00 AM EDT [facility] ([facility] ) Outpatient Attender: KRISTEL murdocky 01/04/2021 03:05:00 PM EDT [facility] Outpatient Referrer: Consuelo Bermudez MD 12/20/2020 02:53:1 2 PM EDT [facility] OFFICE/OUTPATIENT VISIT, ESTOutpatient Attender: Consuelo fay MD [facility] 12/20/2020 02:00:00 PM EDT - 12/20/2020 02:00:00 PM ED T Other terminal clerk (current) drug therapyOsteoarthritisRheumatoid arthritis with rheumatoid factor, unspecified [facility] ([facility]) 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 09/04/2020 07:06:00 PM EST - 09/04/2020 07:06:00 PM EST [facility] ( [facility]) Outpatient Attender: Leatha ruiz 08/22/2020 03:30:00 PM EST [facility] ([facility]) Immunizations Vaccine Date Status Description Data Source(s) COVID-19 VACCINE Moderna 07/04/2021 12:00:00 AM EST completed [facility] Vaccine Series Complete: YESThis Data wa s Submitted to [facility] Via [email or web address]. COVID-19 VACCINE Moderna 10/05/2020 12:00:00 AM EST completed [facility] Vaccine Series Complete: NOThis Data was Submitted to [facility] Via [email or web address]. Medications Medication Brand Name Start Date Product Form Dose Route Admi nistrative Instructions Pharmacy Instructions Status Indications Reaction Description Data Source(s) Cephalexin 500 MG Oral Tablet Cephalexin 06/08/2021 12:00:00 AM EDT ORAL active MEDENT ([facility]) Ibuprofen 200 MG Oral Tablet Ibuprofen 200 04/07/2021 12:00:00 AM EDT ORAL active [facility] ([facility]) Glucosamine 1500 Complex 04/07/2021 12:00:00 AM EDT ORAL active [facility] ([facility]) Loratadine 10 MG Oral Capsule Loratadine 04/07/2021 12:00:00 AM EDT ORAL active [facility] ([facility]) Diphenhydramine Hydrochloride 25 MG Oral Tablet Diphenhydram ine HCL 04/07/2021 12:00:00 AM EDT ORAL active M EDENT ([facility]) Hydroxychloroquine Sulfate 200 MG Oral Tablet Hydroxychloroq uine Sulfate 04/07/2021 12:00:00 AM EDT active [facility] ([facility]) Prednisone 5 MG Oral Tablet Prednisone 01/18/2021 12:00:00 AM EDT active [facility] ([facility]) Ketoconazole 20 MG/ML Topical Cream Ketoconazole 01/04/2021 12:00:00 AM EDT completed [facility] ([facility]) Hydroxychloroquine Sulfate 200 MG Oral T ablet [Plaquenil] Plaquenil 200 mg tablet Plaquenil 200 mg tablet 12/20/2020 12:00:00 AM EDT 2.00 {tbl} OR AL active hydroxychloroquine sulfate 200 M G Oral Tablet [Plaquenil] [facility] ([facility]) Prednisone 5 MG Oral Tablet prednisone 5 mg tablet prednison e 5 mg tablet 12/20/2020 12:00:00 AM EDT active take 2 tablet by oral route in am and one in pm for 5 days; 1 tablet BID for 5 days; 1 tablet in am for 5 days [facility] ([facility]) Glucosamine Chondroitin 1500 Complex 10/19/2020 12:00:00 AM EST ORAL active [facility] Ibuprofen 400 MG Oral Tablet Ibuprofen 10/19/2020 12:00:00 AM EST active [facility] ([facility]) Airborne 10/19/2020 12:00:00 AM EST ORAL active [facility] ([facility]) Amoxicillin 875 MG / Clavulanate 125 MG Oral Tablet Am oxicillin/Clavulanate Potassium 09/25/2020 12:00:00 AM EST ORAL completed [facility] ([facility]) Prednisone 10 MG Oral Tablet Prednisone 09/18/2020 12:00:00 AM EST ORAL completed [facility] ([facility]) Amoxicillin 500 MG Oral Capsule Amoxicillin 09/18/2020 12:00:00 AM EST ORAL completed [facility] ([facility]) meloxicam 15 MG Oral Tablet meloxicam 15 mg tablet meloxicam 15 mg tablet 06/13/2019 12:00:00 AM EDT 1.00 {tbl} ORAL completed take 1 tablet by oral route every day [facility] ([facility]) Hydroxychloroquine Sulfate 200 MG Oral T ablet [Plaquenil] Plaquenil 200 mg tablet Plaquenil 200 mg tablet 04/15/2019 12:00:00 AM EDT 1 {tbl} ORAL completed hydroxychloroquine sulfate 200 M G Oral Tablet [Plaquenil] [facility] ([facility]) Acetaminophen 325 MG Oral Tablet Tylenol 325 mg tablet Tylenol 3 25 mg tablet 2.00 {tbl} ORAL completed take 2 tabl et by oral route every 6 hours as needed [facility] ([facility]) Chondroitin Sulfates 200 MG / Glucosamin e hydrochloride 250 MG Oral Tablet glucosamine-chondroitin 250 mg-200 mg tablet glucosamine-chondroitin 250 mg-200 mg tablet completed [facility] ([facility]) Insurance Providers Payer name Policy type / Coverage type Policy ID Covered democrat ID Covered democrat's relationship to roberts Policy Roberts Plan Information BS [place] [employer] [id number] Self Y [id number] [place] [id number] Self Y [id number] BS [place] [facility] [id number] Self Y [id number] [place] [facility] [id number] Self Y [id number] [facility] Trad/ Commercial [id number] Self [id number] [place] PPO 302/307 [id number] SP [id number] [employer] Commercial [id number] [id number] Self [id number] [employer] [id number] [id number] Self [id number] [employer] [id number] [id number] Self [id number] [employer] [id number] [id number] Self [id number] [employer] [id number] [id number] Self [id number] [facility] [place] [id number] [id number] Self Y [id number] [facility] [place] [id number] [id number] Self Z [id number] [employer] [id number] [id number] Self [id number] BS [place] [id number] [id number] Self Y [id number] BS [place] [id number] [id number] Self Z [id number] [employer] [place] PPO 302/307 [id number] SP [id number] BS [place] Part B [id number] Self Y [id number] BS [place] Part B [id number] Self [id number] [employer] BCBS B [id number] S YND [id number] [employer] BCBS B [id number] S [id number] BS [place] [facility] Part B [id number] Self Y [id number] BS [place] Part B [id number] Self Z [id number] [employer]CELL[employer] BC-BS PPO 306 YND [id number] SP [id number] BS Of [place] [id number] Self [id number] Problems, Conditions, and Diagnoses Code Display Name Description Problem Type Effective Dates Data Source(s) R07.89 Chest pain Chest pain Problem 04/08/2021 12:00:00 AM ED T [facility] ([facility]) I45.19 Right bundle branch block Right bundle branch block Pr oblem 04/08/2021 12:00:00 AM EDT [facility] ([facility]) R94.31 Electrocardiogram abnormal Electrocardiogram abnormal Problem 04/08/2021 12:00:00 AM EDT [facility] ([facility]) I10 Essential hypertension Essential hypertension Problem 04/08/2021 12:00:00 AM EDT [facility] ([facility]) R60.0 Edema Edema Problem 04/08/2021 12:00:00 AM ED T [facility] ([facility]) G47.33 Obstructive sleep apnea syndrome Obstructive sle ep apnea syndrome Problem 04/08/2021 12:00:00 AM EDT [facility] Surgeries/Procedures Procedure Description Date Indications Data Source(s) OFFICE OUTPATIENT VISIT 15 MINUTES 06/08/2021 12:00:00 AM EDT [facility] ([facility]) DOP ECHOCARD COLOR FLOW VELOCITY MAPPING 06/05/2021 12 :00:00 AM EDT [facility] ([facility]) ECHO TTHRC R-T 2D W/WO M-MODE REST&STRS CONT ECG 06/05 12:00:00 AM EDT [facility] ([facility]) CV STRS TST XERS&/OR RX CONT ECG PHYS SI&R 05/21/2021 12:00:00 AM EDT [facility] ([facility]) OFFICE OUTPATIENT VISIT 15 MINUTES 04/19/2021 12:00:00 AM EDT [facility] ([facility], ) ECG ROUTINE ECG W/LEAST 12 LDS W/I&R 04/08/2021 12:00: 00 AM [facility] OFFICE OUTPATIENT NEW 45 MINUTES 04/08/2021 12:00:00 A M EDT [facility] ([facility]) Trans Care SRV W/I 14D Of DC, Comm W/I 2 Dys Med Rec 02/21/2021 12:00:00 AM EDT [facility] ([facility] ) OFFICE OUTPATIENT VISIT 25 MINUTES 01/18/2021 12:00:00 AM EDT [facility] ([facility]) OFFICE OUTPATIENT VISIT 15 MINUTES 01/04/2021 12:00:00 AM EDT [facility] ([facility]) *FOOT X-RAY, 2 VIEWS 12/20/2020 12:00:00 AM EDT - 12/20/2020 12:00:00 AM EDT [facility] ([facility]) *FOOT X-RAY, 2 VIEWS 12/20/2020 12:00:00 AM EDT - 12/20/2020 12:00:00 AM EDT [facility] ([facility]) *HAND X-RAY, 2 VIEWS 12/20/2020 12:00:00 AM EDT - 12/20/2020 12:00:00 AM EDT [facility] ([facility]) OFFICE/OUTPATIENT VISIT, EST 12/20/2020 12:00:00 AM EDT - 12/20/2020 12:00:00 AM EDT [facility] ([facility]) CCP ANTIBODY 12/20/2020 12:00:00 AM EDT - 12/20/2020 1 2:00:00 AM EDT [facility] ([facility]) RHEUMATOID FACTOR, QUANT 12/20/2020 12:0 0:00 AM EDT - 12/20/2020 12:00:00 AM EDT [facility] ([facility]) ASSAY OF BLOOD/URIC ACID 12/20/2020 12:0 0:00 AM EDT - 12/20/2020 12:00:00 AM EDT [facility] ([facility]) ANTINUCLEAR ANTIBODIES (MAKEDA) Titer By SWT 12/20/2020 12:00:00 AM EDT - 12/20/2020 12:00:00 AM EDT [facility] ASSAY OF SERUM ALBUMIN 12/20/2020 12:00: 00 AM EDT - 12/20/2020 12:00:00 AM EDT [facility]) ALANINE AMINO (ALT) (SGPT) 12/20/2020 12 :00:00 AM EDT - 12/20/2020 12:00:00 AM EDT [facility] ([facility]) TRANSFERASE (AST) (SGOT) 12/20/2020 12:0 0:00 AM EDT - 12/20/2020 12:00:00 AM EDT [facility] ([facility]) ASSAY OF UREA NITROGEN 12/20/2020 12:00: 00 AM EDT - 12/20/2020 12:00:00 AM EDT [facility] ([facility]) ASSAY OF CREATININE 12/20/2020 12:00:00 AM EDT - 12/20 12:00:00 AM EDT [facility] ([facility]) C-REACTIVE PROTEIN 12/20/2020 12:00:00 AM EDT - 2020 12:00:00 AM EDT [facility] ([facility]) RBC SED RATE, AUTOMATED 12/20/2020 12:00 :00 AM EDT - 12/20/2020 12:00:00 AM EDT [facility] ([facility]) COMPLETE CBC W/AUTO DIFF WBC 12/20/2020 12:00:00 AM EDT - 12/20/2020 12:00:00 AM EDT [facility]) ROUTINE VENIPUNCTURE 12/20/2020 12:00:00 AM EDT - 12/20/2020 12:00:00 AM [facility] PERIODIC PREVENTIVE MED EST PATIENT 65YRS&> 10/19/2020 12:00:00 AM EST [facility] ([facility]) OFFICE OUTPATIENT VISIT 15 MINUTES 09/25/2020 12:00:00 AM EST [facility] ([facility]) OFFICE OUTPATIENT VISIT 10 MINUTES 09/18/2020 12:00:00 AM EST [facility] ([facility]) Results ID Date Data Source [id number] 06/08/2021 11:53:00 AM EDT [facility] ([facility]) Name Value Range Interpretation Code Description Data Neha rce(s) Supporting Document(s) Bacteria identified in Urine by Culture [facility] Rx Cephlex ID Date Data Source [id number] 03/08/2021 07:58:00 AM EDT [facility] ([facility]) Name Value Range Interpretation Code Description Data Neha rce(s) Supporting Document(s) Lipoprotein lipase [Enzymatic activity/volume] in Serum or P lasma 183 U/L 73-393 [facility] ([facility]) ID Date Data Source [id number] 02/21/2021 11:35:00 AM EDT [facility] ([facility]) Name Value Range Interpretation Code Description Data Neha rce(s) Supporting Document(s) Lipoprotein lipase [Enzymatic activity/volume] in Serum or P lasma 469 U/L 73-393 [facility] ([facility]) ID Date Data Source [id number] 02/21/2021 11:35:00 AM EDT [facility] ([facility]) Name Value Range Interpretation Code Description Data Neha rce(s) Supporting Document(s) Lipoprotein lipase [Enzymatic activity/volume] in Serum or P lasma 469 U/L 73-393 [facility] ID Date Data Source [id number] 02/21/2021 11:33:00 AM EDT [facility] ([facility]) Name Value Range Interpretation Code Description Data Neha rce(s) Supporting Document(s) Leukocytes [#/volume] in Blood by Automated count 5.7 x10*3/UL 4.1-10 .9 [facility] Erythrocytes [#/volume] in Blood by Automated count 4.03 x10*6/UL 4.2 0-6.30 [facility] Hemoglobin [Mass/volume] in Blood 11.9 g/dL 12.0-18.0 [facility] NOTE: RESULT VERIFIED. Hematocrit [Volume Fraction] of Blood by Automated count 34.5 % 3 7.0-51.0 [facility] ([facility]) MCHC 34.5 g/dL 31.0-38.0 [facility] MCV 85.7 fL 80.0-97.0 [facility] ([facility]) MCH 29.6 pg 26.0-32.0 [facility] ([facility]) Platelets [#/volume] in Blood by Automated count 262 x10*3/UL 140-440 [facility] Erythrocyte distribution width [Ratio] by Automated count 13.0 % 11.6-13.7 [facility] ([facility]) Lymph % 26.0 % 10.0-58.5 [facility] Mid % 6.9 % 1.7-9.3 [facility] MPV 9.1 FL 7.8-11.0 [facility] Lymph # 1.4 x10*3/UL 0.6-4.1 [facility] ([facility]) Neut % 67.1 % 37.0-92.0 [facility] Mid # 0.5 x10*3/UL 0.1-0.6 [facility] ([facility]) Neut # 3.8 x10*3/UL 2.0-7.8 [facility] ([facility]) ID Date Data Source [id number] 02/08/2021 01:07:00 PM EDT [facility] ([facility]) Name Value Range Interpretation Code Description Data Neha rce(s) Supporting Document(s) Respiratory Panel Laboratory [facility] This respiratory PCR panel detects Influ tyra A H1, H3 and 2009 H1 viruses, Influenza B virus, Resp iratory Syncytial Virus, Human metapneumovirus, Parainfluenza virus 1, 2, 3 and 4, Adenovirus, Rhinovirus/Enterovirus, Coronavirus HKU1, NL63, OC43, 229E and SARS-CoV-2 (COVID 19), Bordetella pertussis, Bordetella parapertussis, Mycoplasma pneumoniae and Chlamydia pneumoniae. NEGATIVE by MULTIPLEXED NUCLEIC ACID PCR SARS-CoV-2 (COVID 19) NEGATIVE - SARS-CoV-2 (COVID19) ID Date Data Source [id number] 02/08/2021 01:07:00 PM EDT [facility] Name Value Range Interpretation Code Description Data Neha rce(s) Supporting Document(s) SARS-CoV-2 (COVID 19) NEGATIVE - SARS-CoV-2 (COVID19) [facility] This lab was ordered by [facility] a nd reported by [facility]. ID Date Data Source [id number] 02/08/2021 11:47:00 AM EDT [facility] ([facility]) Name Value Range Interpretation Code Description Data Neha rce(s) Supporting Document(s) Laboratory test finding (navigational concept) 0.00 ng/mL 0.00-0.08 [facility] ID Date Data Source [id number] 02/08/2021 11:47:00 AM EDT [facility] ([facility]) Name Value Range Interpretation Code Description Data Neha rce(s) Supporting Document(s) Laboratory test finding (navigational concept) 0.00 ng/mL 0.00-0.08 [facility] ([facility]) ID Date Data Source [id number] 02/08/2021 11:47:00 AM EDT [facility] ([facility]) Name Value Range Interpretation Code Description Data Neha rce(s) Supporting Document(s) Troponin I.cardiac [Mass/volume] in Serum or Plasma Laboratory test result [facility] Laboratory test finding (navigational concept) 0.00 ng/mL 0.00-0.08 [facility] ([facility]) ID Date Data Source [id number] 02/08/2021 11:35:00 AM EDT [facility] Name Value Range Interpretation Code Description Data Neha rce(s) Supporting Document(s) Inr 0.92 [facility] ([facility]) THERAPUTIC HUMAN INR VALUES INDICATIONS NORMAL RANGES PROPHYLAXIS/TREATMENT OF: VENOUS THROMBOSIS 2.0-3.0 PULMONARY EMBOLISM 2.0-3.0 PREVENTION OF SYSTEMIC EMBOLISM FROM: TISSUE HEART VALVES 2.0-3.0 ACUTE MYOCARDIAL INFARCTION 2.0-3.0 VALVULAR HEART DISEASE 2.0-3.0 ATRIAL FIBRILLATION 2.0-3.0 MECHANICAL VALVES(HIGH RISK) 2.5-3.5 RECURRENT MYOCARDIAL INFARCTION 2.5-3.5 Prothrombin Time 12.5 s 12.5-14.3 [facility] ([facility]) ID Date Data Source [id number] 02/08/2021 11:35:00 AM EDT [facility] ([facility]) Name Value Range Interpretation Code Description Data Neha rce(s) Supporting Document(s) aPTT in Blood by Coagulation assay 30.8 s 24.2-38.5 [facility] ([facility]) ID Date Data Source [id number] 02/08/2021 07:35:00 AM EDT [facility] Name Value Range Interpretation Code Description Data Neha rce(s) Supporting Document(s) Laboratory test finding (navigational concept) 0.01 ng/mL 0.00-0.08 [facility] ([facility]) ID Date Data Source [id number] 02/08/2021 07:35:00 AM EDT [facility] ([facility]) Name Value Range Interpretation Code Description Data Neha rce(s) Supporting Document(s) Laboratory test finding (navigational concept) 0.01 ng/mL 0.00-0.08 [facility] ([facility]) ID Date Data Source [id number] 02/08/2021 07:26:00 AM EDT [facility] ([facility]) Name Value Range Interpretation Code Description Data Neha rce(s) Supporting Document(s) Laboratory test finding (navigational concept) 38.0 % 38.0-51.0 [facility] ([facility]) Laboratory test finding (navigational concept) 143 meq/L 136-145 [facility] ([facility]) Laboratory test finding (navigational concept) 3.9 meq/L 3.5-5.1 [facility] ([facility]) Laboratory test finding (navigational concept) 111 mg/dL 70-105 [facility] ([facility]) Laboratory test finding (navigational concept) 5.0 mg/dL 4.5-5.3 [facility] ([facility]) Laboratory test finding (navigational concept) 102 meq/L 98-109 [facility] ([facility]) Laboratory test finding (navigational concept) 24.0 MM/L 23.0-27.0 [facility] ([facility]) Laboratory test finding (navigational concept) 15 mg/dL 8-26 [facility] ([facility]) Creatinine [Mass/volume] in Serum or Plasma 0.8 mg/dL 0.6-1.3 [facility] ([facility]) ID Date Data Source [id number] 02/08/2021 07:26:00 AM EDT [facility] ([facility]) Name Value Range Interpretation Code Description Data Neha rce(s) Supporting Document(s) Laboratory test finding (navigational concept) 111 mg/dL 70-105 [facility] ([facility]) Laboratory test finding (navigational concept) 38.0 % 38.0-51.0 [facility] ([facility]) Laboratory test finding (navigational concept) 5.0 mg/dL 4.5-5.3 [facility] ([facility]) Laboratory test finding (navigational concept) 3.9 meq/L 3.5-5.1 [facility] ([facility]) Laboratory test finding (navigational concept) 143 meq/L 136-145 [facility] ([facility]) Laboratory test finding (navigational concept) 24.0 MM/L 23.0-27.0 [facility] ([facility]) Laboratory test finding (navigational concept) 102 meq/L 98-109 [facility] ([facility]) Laboratory test finding (navigational concept) 0.8 mg/dL 0.6-1.3 [facility] ([facility]) Laboratory test finding (navigational concept) 15 mg/dL 8-26 [facility] ([facility]) ID Date Data Source [id number] 02/08/2021 07:20:00 AM EDT [facility] Name Value Range Interpretation Code Description Data Neha rce(s) Supporting Document(s) Ast/Sgot 16 U/L 7-37 [facility] Alt/SGPT 29 U/L 12-78 [facility] Alkaline Phosphatase 65 U/L 45-117 [facility] ([facility]) Total Protein 7.2 GM/DL 6.4-8.2 [facility] ([facility]) Bilirubin,Direct Laboratory test result 0.0-0.2 [facility] ([facility]) Bilirubin,Total 0.3 mg/dL 0.2-1.0 [facility] ([facility]) Albumin 3.9 GM/DL 3.2-5.2 [facility] Albumin/Globulin Ratio 1.2 1.2-2.2 [facility] ([facility]) ID Date Data Source [id number] 02/08/2021 07:20:00 AM EDT [facility] ([facility]) Name Value Range Interpretation Code Description Data Neha rce(s) Supporting Document(s) Lipoprotein lipase [Enzymatic activity/volume] in Serum or P lasma 898 U/L 73-393 [facility] ([facility]) Thyrotropin [Units/volume] in Serum or Plasma by Detec tion limit <= 0.05 mIU/L 2.560 uIU/ML 0.358-3.740 [facility] ([facility] ) Thyroxine (T4) free [Mass/volume] in Serum or Plasma 0.96 ng/dL 0.76- 1.46 [facility] ([facility]) ID Date Data Source [id number] 02/08/2021 07:20:00 AM EDT [facility] ([facility]) Name Value Range Interpretation Code Description Data Neha rce(s) Supporting Document(s) White Blood Count 5.9 10 4.0-10.0 [facility] ([facility]) Hemoglobin 12.6 g/dL 12.0-15.5 [facility] ([facility]) Red Blood Count 4.21 10 4.00-5.40 [facility] ([facility]) Hematocrit 38.9 % 36.0-47.0 [facility] ([facility]) Mean Corpuscular Volume 92.4 fl 80.0-96.0 [facility] ([facility]) Mean Corpuscular Hemoglobin 29.9 pg 27.0-33.0 [place] [facility] ([facility]) Red Cell Distribution Width 13.1 % 11.5-14.5 [place] [facility] ([facility]) Mean Corpuscular HGB Conc 32.4 g/dL 32.0-36.5 MEDE NT ([facility]) Neutrophils % 71.1 % 36.0-66.0 [facility] ([facility]) Lymph % 17.5 % 24.0-44.0 [facility] Platelet Count, Automated 208 10 150-450 MEDE NT ([facility]) Ross % 7.9 % 2.0-8.0 [facility] Eos % 2.7 % 0.0-3.0 [facility] Baso % 0.5 % 0.0-1.0 [facility] Nucleated Red Blood Cell % 0.0 % 0-0 MED ENT ([facility]) Immature Granulocyte % 0.3 % 0-3.0 [facility] ([facility]) Neutrophils # 4.2 10 1.5-8.5 [facility] ([facility]) Ross # 0.5 10 0.0-0.8 [facility] Lymph # 1.0 10 1.5-5.0 [facility] Baso # 0.0 10 0.0-0.2 [facility] Eos # 0.2 10 0.0-0.5 [facility]) ID Date Data Source [id number] 12/20/2020 03:01[facility] [facility] LEFTCLINICAL HISTORY: Joint pain, history of RA.COMPARISON: None.TECHNIQUE: Two views.FINDINGS: There is no acute fracture or dislocation. The joint spaces are maintained. No osseous erosion is seen. A tiny plantar calcaneal spur is seen. The soft tissues are unremarkable.IMPRESSION:1. No acute abnormality. No evidence of an inflammatory arthropathy.2. Tiny calcaneal spur.Dictated by: KRISTEL RAO on 12/21/2020 09:19 AM Transcribed by: alma delia on 12/21/2020 09:21 [facility]: Name Value Range Interpretation Code Description Data Neha rce(s) Supporting Document(s) ID Date Data Source [id number] 12/20/2020 03:01:00 PM [facility] [employer] [facility] RIGHTCLINICAL HISTORY: Joint pain, history of RA.COMPARISON: None.TECHNIQUE: Two views.FINDINGS: There is no acute fracture or dislocation. The joint spaces are maintained. No osseous erosion is seen. There is a small plantar calcaneal spur. The soft tissues are unremarkable.IMPRESSION:1. No acute abnormality. No evidence of an inflammatory arthropathy.2. Small calcaneal spur.Dictated by: KRISTEL RAO on 12/21/2020 09:16 AM Transcribed by: alma delia on 12/21/2020 09:19 [facility]: Name Value Range Interpretation Code Description Data Neha rce(s) Supporting Document(s) ID Date Data Source [id number] 12/20/2020 03:01:00 PM EDT [facility] LEFTCLINICAL HISTORY: Joint pain, history of RA.COMPARISON: None.TECHNIQUE: Two views.FINDINGS: There is no acute fracture or dislocation. Scattered mild osteoarthritic changes are seen, predominantly at the interphalangeal joints. There is no osseous erosion. The soft tissues are unremarkable.IMPRESSION: Mild osteoarthritis. No evidence of an inflammatory arthropathy.Dictated by: KRISTEL RAO on 12/21/2020 09:16 AM Transcribed by: alma delia on 12/21/2020 09:18 [facility]: Name Value Range Interpretation Code Description Data Neha rce(s) Supporting Document(s) ID Date Data Source [id number] 12/20/2020 02:32:00 PM EDT [facility] ([facility]) Name Value Range Interpretation Code Description Data Neha rce(s) Supporting Document(s) 5.5 mg/dL 2.4-8.6 URIC ACID [facility]) ID Date Data Source [id number] 12/20/2020 02:32:00 PM EDT [facility] ([facility]) Name Value Range Interpretation Code Description Data Neha rce(s) Supporting Document(s) 0.7 mg/dL 0.0-0.5 Above high normal CRP [facility]) ID Date Data Source [id number] 12/20/2020 02:32:00 PM EDT [facility] ([facility]) Name Value Range Interpretation Code Description Data Neha rce(s) Supporting Document(s) 0.9 mg/dL 0.6-1.2 CREATININE [facility] ([facility]) >60 eGFR Non- Next Gen ([facility]) >60 eGFR NextGen ([facility]) ID Date Data Source [id number] 12/20/2020 02:32:00 PM EDT NextGen ([facility]) Name Value Range Interpretation Code Description Data Neha rce(s) Supporting Document(s) 16 mg/dL 10-23 BUN NextGen ([facility]) ID Date Data Source [id number] 12/20/2020 02:32:00 PM EDT NextGen ([facility]) Name Value Range Interpretation Code Description Data Neha rce(s) Supporting Document(s) 14 U/L 15-37 Below low normal AST NextGen ([facility]) ID Date Data Source [id number] 12/20/2020 02:32:00 PM EDT NextGen ([facility]) Name Value Range Interpretation Code Description Data Neha rce(s) Supporting Document(s) 35 U/L 30-65 ALT NextGen ([facility]) ID Date Data Source [id number] 12/20/2020 02:32:00 PM EDT [facility] ([facility]) Name Value Range Interpretation Code Description Data Neha rce(s) Supporting Document(s) 4.1 g/dL 3.4-4.4 ALB NextGen ([facility]) ID Date Data Source [id number] 12/20/2020 02:32:00 PM EDT [facility] ([facility]) Name Value Range Interpretation Code Description Data Neha rce(s) Supporting Document(s) 13 Units <7 Above high normal RF IgM NextGen ([facility]) The following results were obtained with the [employer] QUANTA Lite RF IgM IVETTE. RF IgM values obtained with different manufacturers' assay methods may not be used interchangeably. The magnitude of the reported IgG levels cannot be correlated to an endpoint titer.

ID Date Data Source [id number] 12/20/2020 02:32:00 PM EDT [facility] ([facility]) Name Value Range Interpretation Code Description Data Neha rce(s) Supporting Document(s) 11 mm/Hr 0-20 ESR NextGen ([facility]) ID Date Data Source [id number] 12/20/2020 02:32:00 PM EDT [facility] ([facility]) Name Value Range Interpretation Code Description Data Neha rce(s) Supporting Document(s) Negative ANAIFA NextGen ([facility]) ID Date Data Source [id number] 12/20/2020 02:32:00 PM EDT [facility] ([facility]) Name Value Range Interpretation Code Description Data Neha rce(s) Supporting Document(s) 4 Units <20 ANTI-CCP IgG/IgA NextGen ([facility]) Interpretation: Negative <20; Weak Posit marilu 20-39; Moderate Positive 40-59; Strong Positive >/= 60.The following results were obtained with the [employer] QUANTA Lite CCP3.1 IgG/IgA IVETTE. Anti-CCP values obtained with different manufacturers' assay methods may not be used interchangeably. The magnitude of the reported IgG or IgA levels cannot be correlated to an endpoint titer.

ID Date Data Source [id number] 12/20/2020 02:32:00 PM EDT [facility] ([facility]) Name Value Range Interpretation Code Description Data Neha rce(s) Supporting Document(s) 7.5 10*3/uL 3.7-10.1 WBC NextGen ([facility]) 13.0 g/dL 12.0-16.0 HGB NextGen ([facility]) 4.35 10*6/uL 3.50-5.50 RBC NextGen ([facility]) 95.4 fL 80.0-100.0 MCV NextGen ([facility]) 41.5 % 36.0-48.0 HCT [facility] ([facility]) 29.9 pg 26.0-34.0 MCH [facility] ([facility]) 31.4 g/dL 31.0-37.0 MCHC NextGen ([facility]) 13.0 % 10.0-15.0 RDW [facility]Gen ([facility]) 264 10*3/uL 150-500 PLATELETS NextGen ([facility]) >10 6.0-10.0 Above high normal MPV [facility] ([facility]) 4.38 10*3/uL 2.10-8.00 JOSE# [facility]Gen ([facility]) 2.13 10*3/uL 1.00-5.00 LYM# NextGen ([facility]) 0.2 10*3/uL 0.0-0.5 EOS# NextGen ([facility]) 0.65 10*3/uL 0.10-1.00 MONO# NextGen ([facility]) 58.6 % 50.0-80.0 JOSE% [facility] ([facility]) 0.1 10*3/uL 0.0-0.2 BASO# NextGen ([facility]) 8.7 % 2.0-10.0 MONO% [facility] ([facility]) 28.5 % 25.0-50.0 LYM% [facility]Gen ([facility]) 2.9 % 0.0-5.0 EOS% NextGen ([facility]) 1.3 % 0.0-4.0 BASO% [facility]Gen ([facility]) ID Date Data Source [id number] 10/19/2020 11:17:00 AM EST [facility] ([facility]) Name Value Range Interpretation Code Description Data Neha rce(s) Supporting Document(s) C reactive protein [Mass/volume] in Serum or Plasma by High sensitivity method 0.93 mg/dL 0.00-0.30 [facility] ([facility] ) ID Date Data Source [id number] 10/19/2020 11:17:00 AM EST [facility] ([facility]) Name Value Range Interpretation Code Description Data Neha rce(s) Supporting Document(s) Antinuclear Antibodies Direct Laboratory test result Abnormal (applies to non- numeric results) [facility] Anti Double Strand-Dna AB Laboratory test result 0-9 [facility] ([facility]) <content>Negative <5</content>
<content>Equivocal 5 - 9</content>
<content>Positive >9</content>
<content></content> AIRPLANE ELECTRICIAN Antibodies Laboratory test result 0.0-0.9 ME DENT ([facility]) Sjogren's Anti SS-A 3.4 AI 0.0-0.9 [facility] ([facility] Sjogren's Anti SS-B Laboratory test result 0.0-0.9 [facility] ([facility]) Alves Antibodies Laboratory test result 0.0-0.9 [facility] ([facility]) Makeda Comment Laboratory test result MEDEN T ([facility]) . 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 Mixed Connective Tissue Disease 95% (U1 nRNP, SLE 30 - 50% anti-ribonucleoprotein) Polymyositis and/or Dermatomyositis 20% -------- --------- Scl-70 (antiDNA Scleroderma (diffuse) 20 - 35% topoisomerase) Crest 13% -------- --------- Nela-1 Polymyositis and/or Dermatomyositis 20 - 40% -------- --------- Centromere B Scleroderma - Crest variant 80% Performed at: RN - [facility] [address] [id number] [place]: Ladonna Ibrahim MD, Phone: [phone] ID Date Data Source [id number] 10/19/2020 11:17:00 AM EST [facility] ([facility]) Name Value Range Interpretation Code Description Data Neha rce(s) Supporting Document(s) Rheumatoid Factor Quant Laboratory [facility]) ID Date Data Source [id number] 10/19/2020 11:16:00 AM EST [facility] ([facility]) Name Value Range Interpretation Code Description Data Neha rce(s) Supporting Document(s) Cholesterol [Mass/volume] in Serum or Plasma 249 mg/dL 131-200 [facility] ([facility]) Triglyceride [Mass/volume] in Serum or Plasma 248 mg/dL 30-150 [facility] ([facility]) Cholesterol in LDL [Mass/volume] in Serum or Plasma by calcu lation 155 CALC 50-159 [facility] ([facility]) Cholesterol in HDL [Mass/volume] in Serum or Plasma 44 mg/dL 35-60 [facility] ([facility]) ID Date Data Source [id number] 10/19/2020 11:16:00 AM EST [facility] ([facility]) Name Value Range Interpretation Code Description Data Neha rce(s) Supporting Document(s) Glucose [Mass/volume] in Serum or Plasma 85 mg/dL 74-99 [facility] ([facility]) 100-125 mg/dL PRE-DIABETES/FASTING >126 mg/dL DIABETES/FASTING Urea nitrogen [Mass/volume] in Serum or Plasma 16 mg/dL 7-18 [facility] ([facility]) Creatinine 0.9 mg/dL 0.6-1.3 [facility]) Potassium [Moles/volume] in Serum or Plasma 4.0 meq/L 3.5-5.1 [facility] ([facility]) Chloride [Moles/volume] in Serum or Plasma 104 meq/L 98-107 [facility] ([facility]) Sodium [Moles/volume] in Serum or Plasma 142 meq/L 136-145 [facility] ([facility]) Carbon dioxide, total [Moles/volume] in Serum or Plasma 29 meq/L 21 -32 [facility] ([facility]) Calcium [Mass/volume] in Serum or Plasma 8.9 mg/dL 8.5-10.1 [facility] ([facility]) Alkaline phosphatase isoenzyme [Units/volume] in Serum or Pl asma 70 mg/dL 46-116 [facility] ([facility]) Total Bilirubin 0.4 mg/dL 0.2-1.0 [facility] ([facility]) Aspartate aminotransferase [Enzymatic activity/volume] in Serum or Plasma 11 U/L 15-37 [facility] ([facility] ) Albumin [Mass/volume] in Serum or Plasma 3.7 g/dL 3.4-5.0 [facility] ([facility]) Alanine aminotransferase [Enzymatic activity/volume] in Seru m or Plasma 28 U/L 12-78 [facility] ([facility]) Proteinase 3 Ab [Units/volume] in Serum 6.9 g/dL 6.4-8.2 [facility] ([facility]) A/G Ratio 1.16 CALC 1.00-1.90 [facility] ([facility]) Glomerular filtration rate/1.73 sq M pre dicted among blacks [Volume Rate/Area] in Serum or Plasma by Creatinine-based formula (MDRD) Laboratory test result [facility] ([facility]) <content>CHRONIC KIDNEY DISEASE STAGING PER NKF</content>
<content></content>
<content>STAGE I & II GFR >= 60 NORMAL TO MILDLY DECREASED</content>
<content>STAGE III GFR 30-59 MODERATELY DECREASED</content>
<content>STAGE IV GFR 15-29 SEVERELY DECREASED</content>
<content>STAGE V GFR <15 VERY LITTLE GFR LEFT</content>
<content>ESRD GFR <15 ON MACHINE BOBBIN WINDER</content>
<content></content> Glomerular filtration rate/1.73 sq M pre dicted among non-blacks [Volume Rate/Area] in Serum or Plasma by Creatinine-based formula (MDRD) Laboratory test result [facility] ([facility] ) ID Date Data Source [id number] 10/19/2020 11:16:00 AM EST [facility] ([facility]) Name Value Range Interpretation Code Description Data Neha rce(s) Supporting Document(s) Erythrocyte sedimentation rate by Westergren method 19 mm/hr 0-15 [facility] ([facility]) ID Date Data Source [id number] 10/19/2020 11:16:00 AM EST [facility] ([facility]) Name Value Range Interpretation Code Description Data Neha rce(s) Supporting Document(s) Leukocytes [#/volume] in Blood by Automated count 5.7 x10*3/UL 4.1-10 .9 [facility] ([facility]) CRITICAL: CBC VERIFIED Hemoglobin [Mass/volume] in Blood 11.9 g/dL 12.0-18.0 [facility] ([facility]) Erythrocytes [#/volume] in Blood by Automated count 3.96 x10*6/UL 4.2 0-6.30 [facility] ([facility]) MCV 86.2 fL 80.0-97.0 [facility] ([facility]) MCH 30.1 pg 26.0-32.0 [facility] ([facility]) Hematocrit [Volume Fraction] of Blood by Automated count 34.1 % 3 7.0-51.0 [facility] ([facility]) MCHC 34.9 g/dL 31.0-38.0 [facility] ([facility]) Erythrocyte distribution width [Ratio] by Automated count 13.2 % 11.6-13.7 [facility] ([facility]) Lymph % 28.0 % 10.0-58.5 [facility] ([facility]) Platelets [#/volume] in Blood by Automated count 251 x10*3/UL 140-440 [facility] ([facility]) MPV 8.9 FL 7.8-11.0 [facility] ([facility]) Lymph # 1.6 x10*3/UL 0.6-4.1 [facility] ([facility]) Neut % 64.0 % 37.0-92.0 [facility] ([facility]) Mid % 8.0 % 1.7-9.3 [facility] Neut # 3.6 x10*3/UL 2.0-7.8 [facility] ([facility]) Mid # 0.5 x10*3/UL 0.1-0.6 [facility] ([facility]) Procedure Social History Code Duration Value Status Description Data Source(s ) Smoking 04/19/2021 12:00:00 AM EDT Patient is a former smoker completed Patient is a former smoker [facility] ([facility], ) Smoking 04/08/2021 12:00:00 AM EDT Patient is a former smoker completed Patient is a former smoker [facility] ([facility]) Caffeine Use Details 12/20/2020 12:00:00 AM EDT completed NextGen ([facility]) 12/20/2020 12:00:00 AM EDT Ex-cigarette smoker completed Ex-cigarette smoker NextGen ([facility]) Smoking 12/20/2020 12:00:00 AM EDT Former smoker completed Former smoker NextGen ([facility]) Smoking 08/22/2020 12:00:00 AM EST Patient is a former smoker completed Patient is a former smoker [facility] ([facility], [facility]) Vital Signs ID Date Data Source UNK Name Value Range Interpretation Code Description Data Source(s) Body height 65 [in_i] 65 [in_i] [facility] ([facility]) 5'5" Heart rate 79 /min 79 /min [facility] ([facility]) Body mass index (BMI) [Ratio] 38.3 kg/m2 38.3 k g/m2 [facility] ([facility], [facility]) Systolic blood pressure 115 mm[Hg] 115 mm[Hg] [facility]) Diastolic blood pressure 75 mm[Hg] 75 mm[Hg] [facility] ([facility], [facility]) Respiratory rate 16 /min 16 /min [facility] ( [facility]) Oxygen saturation in Arterial blood by Pulse oximetry 97 % 97 % [facility] ([facility]) Body temperature 97.9 [degF] 97.9 [degF] [facility] ([facility]) Body weight 230.00 [lb_av] 230.00 [lb_av] MEDEN T ([facility]) Diastolic blood pressure 74 mm[Hg] 74 mm[Hg] [facility] ([facility]) Systolic blood pressure 122 mm[Hg] 122 mm[Hg] M EDENT ([facility]) Heart rate 71 /min 71 /min [facility] ([facility]) Oxygen saturation in Arterial blood by Pulse oximetry 95 % 95 % [facility] ([facility]) Body height 65 [in_i] 65 [in_i] [facility] ([facility]) 5'5" Body weight 236.50 [lb_av] 236.50 [lb_av] MED[facility] T ([facility]) Body mass index (BMI) [Ratio] 39.4 kg/m2 39.4 k g/m2 [facility] ([facility]) [place] body weight 125 [lb_av] 125 [lb_av] MED[facility] T ([facility]) Body weight 107.276 kg 107.276 kg [facility] ([facility]) Body surface area Derived from formula 2.12 m2 2.12 m2 [facility] ([facility]) Systolic blood pressure--sitting 124 mm[Hg] 124 mm[Hg] [facility] ([facility]) large cuff, Ra; 121/84 LA Systolic blood pressure--supine 126 mm[Hg] 126 mm[Hg] [facility] ([facility]) Ra Heart rate 76 /min 76 /min [facility] ([facility]) regular with occasional irregularity Respiratory rate 18 /min 18 /min [facility] ( [facility]) Diastolic blood pressure--sitting 82 mm[Hg] 82 mm[Hg] [facility] ([facility]) large cuff, Ra; 121/84 LA Body weight 233.00 [lb_av] 233.00 [lb_av] MEDEN T ([facility]) Body height 65 [in_i] 65 [in_i] [facility] ([facility]) 5'5" Body mass index (BMI) [Ratio] 38.8 kg/m2 38.8 k g/m2 [facility] ([facility]) Diastolic blood pressure--supine 83 mm[Hg] 83 mm[Hg] [facility] ([facility]) Ra Systolic blood pressure 122 mm[Hg] 122 mm[facility]Hg] [facility]) Body mass index (BMI) [Ratio] 37.0 kg/m2 37.0 k g/m2 [facility] ([facility]) Diastolic blood pressure 80 mm[Hg] 80 mm[Hg] [facility] ([facility]) Heart rate 70 /min 70 /min [facility] ([facility]) Body height 66.50 [in_i] 66.50 [in_i] MED[facility] ([facility]) 5'6.50" Body weight 233.00 [lb_av] 233.00 [lb_av] MEDEN T ([facility]) Oxygen saturation in Arterial blood by Pulse oximetry 97 % 97 % [facility] ([facility]) RM Air Heart rate 68 /min 68 /min [facility] ([facility]) Diastolic blood pressure 78 mm[Hg] 78 mm[Hg] [facility] ([facility]) Systolic blood pressure 126 mm[Hg] 126 mm[Hg] [facility] ([facility]) Body height 66.50 [in_i] 66.50 [in_i] MED[facility] ([facility]) 5'6.50" Body weight 236.00 [lb_av] 236.00 [lb_av] MEDEN T ([facility]) Oxygen saturation in Arterial blood by Pulse oximetry 98 % 98 % [facility] ([facility]) RM Air Body mass index (BMI) [Ratio] 37.5 kg/m2 37.5 k g/m2 [facility] ([facility]) Body weight 230.00 [lb_av] 230.00 [lb_av] MED[facility] T ([facility], [facility]) Body height 65 [in_i] 65 [in_i] [facility] ([facility], [facility]) 5'5" Systolic blood pressure 133 mm[Hg] 133 mm[Hg] [facility] ([facility], [facility]) Diastolic blood pressure 83 mm[Hg] 83 mm[Hg] [facility] ([facility], [facility]) Heart rate 73 /min 73 /min [facility]) Respiratory rate 16 /min 16 /min [facility] ( [facility]) Oxygen saturation in Arterial blood by Pulse oximetry 97 % 97 % [facility] ([facility], [facility]) Body temperature 98.0 [degF] 98.0 [degF] [facility] ([facility], [facility]) Body mass index (BMI) [Ratio] 38.3 kg/m2 38.3 k g/m2 [facility] ([facility], [facility]) Body height 162.56 cm 162.56 cm NextGen ([facility]) Body weight 107.955 kg 107.955 [facility]) Systolic blood pressure 130 mm[Hg] 130 mm[Hg] N extGen ([facility]) Diastolic blood pressure 80 mm[Hg] 80 mm[Hg] [facility] ([facility]) Body mass index (BMI) [Ratio] 40.85 kg/m2 Overweight 40.85 kg/m2 [facility] ([facility]) Systolic blood pressure 120 mm[Hg] 120 mm[Hg] [facility] RT Arm Diastolic blood pressure 80 mm[Hg] 80 mm[Hg] [facility] ([facility]) RT Arm Heart rate 80 /min 80 /min [facility]) Body height 66.50 [in_i] 66.50 [in_i] [facility] ([facility]) 5'6.50" Body weight 236.00 [lb_av] 236.00 [lb_av] MEDEN T ([facility]) Body mass index (BMI) [Ratio] 37.5 kg/m2 37.5 k g/m2 [facility] ([facility]) Diastolic blood pressure 78 mm[Hg] 78 mm[Hg] [facility] ([facility]) Systolic blood pressure 122 mm[Hg] 122 mm[Hg] [facility] Heart rate 84 /min 84 /min [facility] ([facility]) Body height 66.50 [in_i] 66.50 [in_i] [facility] ([facility]) 5'6.50" Body weight 232.00 [lb_av] 232.00 [lb_av] MED[facility] T ([facility]) Oxygen saturation in Arterial blood by Pulse oximetry 96 % 96 % [facility] ([facility]) Air Body mass index (BMI) [Ratio] 36.9 kg/m2 36.9 k g/m2 [facility] ([facility]) Body mass index (BMI) [Ratio] 37.5 kg/m2 37.5 k g/m2 [facility] ([facility]) Systolic blood pressure 130 mm[Hg] 130 mm[Hg] [facility] Diastolic blood pressure 80 mm[Hg] 80 mm[Hg] [facility] ([facility]) Body height 66.50 [in_i] 66.50 [in_i] [facility] ([facility]) 5'6.50" Body weight 236.00 [lb_av] 236.00 [lb_av] MED[facility] T ([facility]) Systolic blood pressure 125 mm[Hg] 125 mm[Hg] [facility]) Diastolic blood pressure 74 mm[Hg] 74 mm[Hg] [facility] ([facility], [facility]) Heart rate 86 /min 86 /min [facility] ([facility], [facility]) Respiratory rate 16 /min 16 /min [facility] ( [facility], [facility]) Oxygen saturation in Arterial blood by Pulse oximetry 97 % 97 % [facility] ([facility], [facility]) Body temperature 97.8 [degF] 97.8 [degF] [facility] ([facility], [facility]) Body weight 210.00 [lb_av] 210.00 [lb_av] MED[facility] T ([facility], [facility]) Patient Treatment Plan of Care Planned Activity Planned Date Details Description Data Source (s) Hydroxychloroquine Sulfate 200 MG Oral Tablet [[place]] 12/20/2020 12:00:00 AM EDT [facility] ([facility] Prednisone 5 MG Oral Tablet 12/20/2020 12:00:00 AM EDT [facility] ([facility]) meloxicam 15 MG Oral Tablet 06/13/2019 12:00:00 AM EDT [facility] ([facility]) Hydroxychloroquine Sulfate 200 MG Oral Tablet [[place]] 04/15/2019 12:00:00 AM EDT [facility] ([facility]) Chondroitin Sulfates 200 MG / Glucosamine hydrochloride 250 MG O ral Tablet [facility] ([facility]) Acetaminophen 325 MG Oral Tablet Next[facility] ([facility])
[2021-07-12 12:08] LABS: BASO % 0.6 % (0.0-1.0); EOS # 0.2 10^3/uL (0.0-0.5); HEMOGLOBIN 12.6 g/dl (12.0-15.5); LYMPH % 18.5 % (24.0-44.0); MEAN CORPUSCULAR HEMOGLOBIN 28.8 pg (27.0-33.0); MEAN CORPUSCULAR HGB CONC 31.5 g/dl (32.0-36.5); MEAN CORPUSCULAR VOLUME 91.5 fl (80.0-96.0); MONO # 0.5 10^3/uL (0.0-0.8); MONO % 9.1 % (2.0-8.0); NEUTROPHILS # 3.6 10^3/uL (1.5-8.5); NEUTROPHILS % 68.6 % (36.0-66.0); PLATELET COUNT, AUTOMATED 243 10^3/uL (150-450); RED BLOOD COUNT 4.37 10^6/uL (4.00-5.40); WHITE BLOOD COUNT 5.3 10^3/uL (4.0-10.0)
[2021-07-12 12:36] LABS: BILIRUBIN,DIRECT 4.1 MG/DL (0.0-0.2); CALCIUM LEVEL 10.1 MG/DL (8.8-10.2); CREATININE FOR GFR 1.03 MG/DL (0.55-1.30); GLOMERULAR FILTRATION RATE 57.1 (>45); POTASSIUM SERUM 3.7 MEQ/L (3.5-5.1); TOTAL PROTEIN 7.6 GM/DL (6.4-8.2)
--- OUTSIDE RECORDS SUMMARY | 2021-07-12 16:26 | CCD ---
Author Author [facility] Organization [facility] Address Unknown Phone Unavailable Care Team Providers Care Business Intelligence Reporting Analyst Name Role Phone Vic, Denise RETURNED GOODS SORTER Unavailable Unavailable Vic, Denise RETURNED GOODS SORTER Unavailable Unavailable Vic, Denise RETURNED GOODS SORTER Unavailable Unavailable Vic, Denise RETURNED GOODS SORTER Unavailable Unavailable Vic, Denise RETURNED GOODS SORTER Unavailable Unavailable Vic, Denise RETURNED GOODS SORTER Unavailable Unavailable Vic, Denise RETURNED GOODS SORTER Unavailable Unavailable Vic, Denise RETURNED GOODS SORTER Unavailable Unavailable Vic, Denise RETURNED GOODS SORTER Unavailable Unavailable Vic, Denise RETURNED GOODS SORTER Unavailable Unavailable Vic, Denise RETURNED GOODS SORTER Unavailable Unavailable Vic, Denise RETURNED GOODS SORTER Unavailable Unavailable Vic, Denise RETURNED GOODS SORTER Unavailable Unavailable Vic, Denise RETURNED GOODS SORTER Unavailable Unavailable Vic, Denise RETURNED GOODS SORTER Unavailable Unavailable Vic, Denise RETURNED GOODS SORTER Unavailable Unavailable Vic, Denise RETURNED GOODS SORTER Unavailable Unavailable Vic, Denise RETURNED GOODS SORTER Unavailable Unavailable Vic, Denise RETURNED GOODS SORTER Unavailable Unavailable Vic, Denise RETURNED GOODS SORTER Unavailable Unavailable Vic, Denise RETURNED GOODS SORTER Unavailable Unavailable Vic, Denise RETURNED GOODS SORTER Unavailable Unavailable Vic, Denise RETURNED GOODS SORTER Unavailable Unavailable Vic, Denise RETURNED GOODS SORTER Unavailable Unavailable Vic, Denise RETURNED GOODS SORTER Unavailable Unavailable Vic, Denise RETURNED GOODS SORTER Unavailable Unavailable Vic, Denise RETURNED GOODS SORTER Unavailable Unavailable Vic, Denise RETURNED GOODS SORTER Unavailable Unavailable Vic, Denise RETURNED GOODS SORTER Unavailable Unavailable Vic, Denise RETURNED GOODS SORTER Unavailable Unavailable Vic, Denise RETURNED GOODS SORTER Unavailable Unavailable Vic, Denise RETURNED GOODS SORTER Unavailable Unavailable Vic, Denise RETURNED GOODS SORTER Unavailable Unavailable Vic, Denise RETURNED GOODS SORTER Unavailable Unavailable Vic, Denise RETURNED GOODS SORTER Unavailable Unavailable LETTIERE, A KRISTEL PA Unavailable [...] J SAYRA PA-C Unavailable Unavailable Pikarsky, Renan MANAGER FIELD INVESTIGATIONS Unavailable Unavailable Pikarsky, Renan MANAGER FIELD INVESTIGATIONS Unavailable Unavailable Pikarsky, Renan MANAGER FIELD INVESTIGATIONS Unavailable Unavailable Pikarsky, Renan MANAGER FIELD INVESTIGATIONS Unavailable Unavailable Pikarsky, Renan MANAGER FIELD INVESTIGATIONS Unavailable Unavailable Pikarsky, Renan MANAGER FIELD INVESTIGATIONS Unavailable Unavailable Pikarsky, Renan MANAGER FIELD INVESTIGATIONS Unavailable Unavailable Pikarsky, Renan MANAGER FIELD INVESTIGATIONS Unavailable Unavailable Pikarsky, Renan MANAGER FIELD INVESTIGATIONS Unavailable Unavailable Pikarsky, Renan MANAGER FIELD INVESTIGATIONS Unavailable Unavailable Pikarsky, Renan MANAGER FIELD INVESTIGATIONS Unavailable Unavailable Pikarsky, Renan MANAGER FIELD INVESTIGATIONS Unavailable Unavailable Pikarsky, Renan MANAGER FIELD INVESTIGATIONS Unavailable Unavailable Pikarsky, Renan MANAGER FIELD INVESTIGATIONS Unavailable Unavailable Pikarsky, Renan MANAGER FIELD INVESTIGATIONS Unavailable Unavailable Pikarsky, Renan MANAGER FIELD INVESTIGATIONS Unavailable Unavailable Pikarsky, Renan MANAGER FIELD INVESTIGATIONS Unavailable Unavailable Pikarsky, Renan MANAGER FIELD INVESTIGATIONS Unavailable Unavailable Pikarsky, Renan MANAGER FIELD INVESTIGATIONS Unavailable Unavailable Pikarsky, Renan MANAGER FIELD INVESTIGATIONS Unavailable Unavailable Pikarsky, Renan MANAGER FIELD INVESTIGATIONS Unavailable Unavailable Pikarsky, Renan MANAGER FIELD INVESTIGATIONS Unavailable Unavailable Pikarsky, Renan MANAGER FIELD INVESTIGATIONS Unavailable Unavailable Pikarsky, Renan MANAGER FIELD INVESTIGATIONS Unavailable Unavailable Pikarsky, Renan MANAGER FIELD INVESTIGATIONS Unavailable Unavailable Pikarsky, Renan MANAGER FIELD INVESTIGATIONS Unavailable Unavailable Pikarsky, Renan MANAGER FIELD INVESTIGATIONS Unavailable Unavailable Pikarsky, Renan MANAGER FIELD INVESTIGATIONS Unavailable Unavailable Pikarsky, Renan MANAGER FIELD INVESTIGATIONS Unavailable Unavailable Pikarsky, Renan MANAGER FIELD INVESTIGATIONS Unavailable Unavailable Emilie Ambrose PA Unavailable Unavailable AmbroseEmilie layne PA Unavailable Unavailable AmbroseEmilie layne PA Unavailable Unavailable AmbroseEmilie layne PA Unavailable Unavailable AmbroseEmilie layne PA Unavailable Unavailable AmbroseEmilie layne PA Unavailable Unavailable Ambrose, Emilie Leatha PA Unavailable Unavailable Ambrose, Emilie Leatha PA Unavailable Unavailable Ambrose, Emilie Leatha PA Unavailable Unavailable Ambrose, Emilie Leatha PA Unavailable Unavailable AGUSTÍN, JADYN CARLOS RETURNED GOODS SORTER-C Unavailable Unavailable AGUSTÍN, JADYN CARLOS RETURNED GOODS SORTER-C Unavailable Unavailable AGUSTÍN, JADYN CARLOS RETURNED GOODS SORTER-C Unavailable Unavailable AGUSTÍN, JADYN CARLOS RETURNED GOODS SORTER-C Unavailable Unavailable AGUSTÍN, JADYN CARLOS RETURNED GOODS SORTER-C Unavailable Unavailable AGUSTÍN, JADYN CARLOS RETURNED GOODS SORTER-C Unavailable Unavailable AGUSTÍN, JADYN CARLOS RETURNED GOODS SORTER-C Unavailable Unavailable AGUSTÍN, JADYN CARLOS RETURNED GOODS SORTER-C Unavailable Unavailable AGUSTÍN, JADYN CARLOS RETURNED GOODS SORTER-C Unavailable Unavailable AGUSTÍN, JADYN CARLOS RETURNED GOODS SORTER-C Unavailable Unavailable AGUSTÍN, JADYN CARLOS RETURNED GOODS SORTER-C Unavailable Unavailable AGUSTÍN, JADYN CARLOS RETURNED GOODS SORTER-C Unavailable Unavailable AGUSTÍN, JADYN CARLOS RETURNED GOODS SORTER-C Unavailable Unavailable AGUSTÍN, JADYN CARLOS RETURNED GOODS SORTER-C Unavailable Unavailable AGUSTÍN, JADYN CARLOS RETURNED GOODS SORTER-C Unavailable Unavailable AGUSTÍN, JADYN CARLOS RETURNED GOODS SORTER-C Unavailable Unavailable AGUSTÍN, JADYN CARLOS RETURNED GOODS SORTER-C Unavailable Unavailable Pasniciuc, Kd Cordero MD Unavailable [...] Kd Cordero MD Unavailable Unavailable Pasniciuc, Kd Cordreo MD Unavailable Unavailable Pasniciuc, Kd Cordero MD [...] is protected by Article 27-F of the [place] Public [employer] law. If you continue you may have access to information: Regarding HIV / AIDS; Provided by facilities licensed or operated by the [place] Office of Mental Health; or Provided by the [place] Office for People With Developmental Disabilities. If such information is present, then the following [place] mandated warning applies: This information has been [...] law may result in a fine or care home sentence or both. A general authorization for [...] ([facility]) Unknown Male Problem MEDENT ([facility] ) Unknown Male Problem MEDENT ([facility]) () Unknown Male Problem MEDENT ([facility]) Encounters Encounter Providers Location Date Indications Data Source(s ) Outpatient Attender: KRISTEL murdocky 06/08/2021 09:15:00 AM EDT [facility] ([facility]) Outpatient Attender: CARLOS Gibbs/Christofer/Cain/Adrienne mendosa 04/19/2021 11:15:00 AM EDT MEDENT ([facility] ) Outpatient Attender: ERLIN PAREDES MD Main Office 04/08/2021 10:30:00 AM EDT MED[facility] ([facility]) Outpatient Attender: SAYRA Mcnamara 0 02/21/2021 11:20:00 AM EDT MEDENT ([facility] ) Outpatient Attender: SAYRA Mcnamara 0 01/18/2021 11:20:00 AM EDT MEDENT ([facility] ) Outpatient Attender: KRISTEL murdocky 01/04/2021 03:05:00 PM EDT MED[facility] ([facility] Outpatient Referrer: Consuelo Bermudez MD 12/20/2020 02:53:1 2 PM EDT [facility] OutpatientOFFICE/OUTPATIENT VISIT, EST Attender: Consuelo fay MD [facility] 12/20/2020 02:00:00 PM EDT - 12/20/2020 02:00:00 PM ED T Other manager long term care (current) drug therapyOsteoarthritisRheumatoid arthritis with rheumatoid factor, unspecified [facility] ([facility]) Other manager long term care (current) drug therapy Osteoarthritis Rheumatoid arthritis with rheumatoid fac tor, unspecified Attender: Renan Stein NP [facility] 11/07/2020 02:33:00 PM EDT - 11/07/2020 02:33:00 PM EDT [facility] ( [facility]) Outpatient Attender: Denise Mcnamara 09:40:00 AM EST MEDENT ([facility] ) Outpatient Attender: SAYRA Mcnamara 0 09/25/2020 01:40:00 PM EST MEDENT ([facility] ) Outpatient Attender: SAYRA Mcnamara 0 09/18/2020 12:00:00 PM EST MEDENT ([facility] ) Attender: OSKAR ALVES MD [facility] 09/04/2020 07:06:00 PM EST - 09/04/2020 07:06:00 PM EST [facility] ( [facility]) Outpatient Attender: Leatha ruiz 08/22/2020 03:30:00 PM EST [facility] ([facility]) Immunizations Vaccine Date Status Description Data Source(s) COVID-19 VACCINE Moderna 07/04/2021 12:00:00 AM EST completed [facility] Vaccine Series Complete: YESThis Data wa s Submitted to [facility] Via [facility]. COVID-19 VACCINE Moderna 10/05/2020 12:00:00 AM EST completed [facility] Vaccine Series Complete: NOThis Data was Submitted to [facility] [employer]. Medications Medication Brand Name Start Date Product Form Dose Route Admi nistrative Instructions Pharmacy Instructions Status Indications Reaction Description Data Source(s) Cephalexin 500 MG Oral Tablet Cephalexin 06/08/2021 12:00:00 AM EDT ORAL active MEDENT ([facility], [facility]) Ibuprofen 200 MG Oral Tablet Ibuprofen 200 04/07/2021 12:00:00 AM EDT ORAL active [facility] ([facility]) Glucosamine 1500 Complex 04/07/2021 12:00:00 AM EDT ORAL active MED[facility] ([facility]) Loratadine 10 MG Oral Capsule Loratadine 04/07/2021 12:00:00 AM EDT ORAL active [facility] ([facility]) Diphenhydramine Hydrochloride 25 MG Oral Tablet Diphenhydram ine HCL 04/07/2021 12:00:00 AM EDT ORAL active M EDENT ([facility]) Hydroxychloroquine Sulfate 200 MG Oral Tablet Hydroxychloroq uine Sulfate 04/07/2021 12:00:00 AM EDT active MEDENT ([facility]) Prednisone 5 MG Oral Tablet Prednisone 01/18/2021 12:00:00 AM EDT active [facility] ([facility]) Ketoconazole 20 MG/ML Topical Cream Ketoconazole 01/04/2021 12:00:00 AM EDT completed MEDENT ([facility], [facility]) Hydroxychloroquine Sulfate 200 MG Oral T ablet [...] 10/19/2020 12:00:00 AM EST [facility]AL [facility] Ibuprofen 400 MG Oral Tablet Ibuprofen 10/19/2020 12:00:00 AM EST active MEDENT ([facility]) Airborne 10/19/2020 12:00:00 AM EST ORAL active MEDENT ([facility]) Amoxicillin 875 MG / Clavulanate 125 MG Oral Tablet Am oxicillin/Clavulanate Potassium 09/25/2020 12:00:00 AM EST ORAL completed MEDENT ([facility]) Prednisone 10 MG Oral Tablet Prednisone 09/18/2020 12:00:00 AM EST ORAL completed MEDENT ([facility]) Amoxicillin 500 MG Oral Capsule Amoxicillin 09/18/2020 12:00:00 AM EST ORAL completed MEDENT ([facility]) meloxicam 15 MG Oral Tablet meloxicam [...] type / Coverage type Policy ID Covered constitution party ID Covered constitution party's relationship to roberts Policy Roberts Plan Information [place] [employer] [id number] Self Y [id number] [place] [employer] [id number] Self Y [id number] BS [place] [employer] [id number] Self Y [id number] [place] [employer] [id number] Self Y [id number] [facility] Tr[facility]/ Commercial [id number] Self [id number] [employer] [place] PPO 302/307 [id number] SP [id number] [employer] Commercial [id number] [id number] Self [id number] [employer] [id number] [id number] Self [id number] [employer] [id number] [id number] Self [id number] [employer] [id number] [id number] Self [id number] [employer] [id number] [id number] Self [id number] BS [place] [facility] [id number] [id number] Self Y [id number] BS [place] [facility] [id number] Self [id number] [employer] [id number] [id number] Self [id number] BS [place] [facility] [id number] [id number] Self Y [id number] BS [place] [facility] [id number] [id number] Self Z [id number] [employer] [place] PPO 302/307 [id number] SP [id number] BS [place] [facility] Part B [id number] Self Y [id number] BS [place] [facility] Part B [id number] Self Z [id number] [employer] BCBS B [id number] S YND [id number] [employer] BCBS B [id number] S YND [id number] BS [place] [facility] Part B [id number] Self Y [id number] BS [place] [facility] Part B [id number] Self Z [id number] [employer] BC-BS PPO 306 YND [id number] SP YND [id number] BS Of [place] Commercial [id number] Self [id number] Problems, Conditions, and Diagnoses Code Display Name Description Problem Type Effective Dates Data Source(s) R07.89 Chest pain Chest pain Problem 04/08/2021 12:00:00 AM ED T MEDADAN ([facility]) I45.19 Right bundle branch block Right bundle branch block Pr oblem 04/08/2021 12:00:00 AM EDT [facility] ([facility]) R94.31 Electrocardiogram abnormal Electrocardiogram abnormal Problem 04/08/2021 12:00:00 AM EDT MEDENT ([facility]) I10 Essential hypertension Essential hypertension Problem 04/08/2021 12:00:00 AM EDT MED[facility] ([facility]) R60.0 Edema Edema Problem 04/08/2021 12:00:00 AM ED T MEDENT ([facility]) G47.33 Obstructive sleep apnea syndrome Obstructive sle ep apnea syndrome Problem 04/08/2021 12:00:00 AM EDT [facility] Surgeries/Procedures Procedure Description Date Indications Data Source(s) OFFICE OUTPATIENT VISIT 15 MINUTES 06/08/2021 12:00:00 AM EDT MEDENT ([facility], [facility]) DOP ECHOCARD COLOR FLOW VELOCITY MAPPING 06/05/2021 12 :00:00 AM EDT MEDENT ([facility]) ECHO TTHRC R-T 2D W/WO M-MODE REST&STRS CONT ECG 06/05 12:00:00 AM EDT MEDENT ([facility]) CV STRS TST XERS&/OR RX CONT ECG PHYS SI&R 05/21/2021 12:00:00 AM EDT MEDENT ([facility]) OFFICE OUTPATIENT VISIT 15 MINUTES 04/19/2021 12:00:00 AM EDT MEDENT ([facility], ) ECG ROUTINE ECG W/LEAST 12 LDS W/I&R 04/08/2021 12:00: 00 AM EDT [facility]) OFFICE OUTPATIENT NEW 45 MINUTES 04/08/2021 12:00:00 A M EDT MEDENT ([facility]) Trans Care SRV W/I 14D Of DC, Comm W/I 2 Dys Med Rec 02/21/2021 12:00:00 AM EDT MEDENT ([facility] ) OFFICE OUTPATIENT VISIT 25 MINUTES 01/18/2021 12:00:00 AM EDT MEDENT ([facility]) OFFICE OUTPATIENT VISIT 15 MINUTES 01/04/2021 12:00:00 AM EDT MED[facility] ([place] [facility], [facility]) *FOOT X-RAY, 2 VIEWS 12/20/2020 12:00:00 AM [...] AM EDT - 12/20/2020 12:00:00 AM EDT [facility]) PERIODIC PREVENTIVE MED EST PATIENT 65YRS&> 10/19/2020 12:00:00 AM EST MEDENT ([facility]) OFFICE OUTPATIENT VISIT 15 MINUTES 09/25/2020 12:00:00 AM EST MEDENT ([facility]) OFFICE OUTPATIENT VISIT 10 MINUTES 09/18/2020 12:00:00 AM EST MED[facility] ([facility]) Results ID Date Data Source [id number] 06/08/2021 11:53:00 AM EDT MEDENT ([facility]) Name Value Range Interpretation Code Description Data Neha rce(s) Supporting Document(s) Bacteria identified in Urine by Culture Laboratory test result [facility]) Rx Cephlex ID Date Data Source [id number] 03/08/2021 07:58:00 AM EDT MEDENT ([facility]) Name Value Range Interpretation Code Description Data Neha rce(s) Supporting Document(s) Lipoprotein lipase [Enzymatic activity/volume] in Serum or P lasma 183 U/L 73-393 MEDENT ([facility]) ID Date Data Source [id number] 02/21/2021 11:35:00 AM EDT MED[facility] ([facility]) Name Value Range Interpretation Code Description Data Neha rce(s) Supporting Document(s) Lipoprotein lipase [Enzymatic activity/volume] in Serum or P lasma 469 U/L 73-393 MED[facility] ([facility]) ID Date Data Source [id number] 02/21/2021 11:35:00 AM EDT MEDENT ([facility]) Name Value Range Interpretation Code Description Data Neha rce(s) Supporting Document(s) Lipoprotein lipase [Enzymatic activity/volume] in Serum or P lasma 469 U/L 73-393 [facility] ID Date Data Source [id number] 02/21/2021 11:33:00 AM EDT MEDENT ([facility]) Name Value Range Interpretation Code Description Data Neha rce(s) Supporting Document(s) Leukocytes [#/volume] in Blood by Automated count 5.7 x10*3/UL 4.1-10 .9 [facility] ([facility] Erythrocytes [#/volume] in Blood by Automated count 4.03 x10*6/UL 4.2 0-6.30 [facility] ([facility] [place] [facility] Hemoglobin [Mass/volume] in Blood 11.9 g/dL 12.0-18.0 [facility] ([facility] [place] [facility] NOTE: RESULT VERIFIED. Hematocrit [Volume Fraction] of Blood by Automated count 34.5 % 3 7.0-51.0 MED[facility] ([facility]) MCHC 34.5 g/dL 31.0-38.0 [facility] ([place] [facility]) MCV 85.7 fL 80.0-97.0 MEDENT ([facility]) MCH 29.6 pg 26.0-32.0 MEDENT ([facility]) Platelets [#/volume] in Blood by Automated count 262 x10*3/UL 140-440 [facility] [place] [facility] Erythrocyte distribution width [Ratio] by Automated count 13.0 % 11.6-13.7 MED[facility] ([facility]) Lymph % 26.0 % 10.0-58.5 [facility] ([place] [facility]) Mid % 6.9 % 1.7-9.3 [facility] ([place] [facility]) MPV 9.1 FL 7.8-11.0 [facility] ([place] [facility]) Lymph # 1.4 x10*3/UL 0.6-4.1 [facility] ([facility]) Neut % 67.1 % 37.0-92.0 [facility] ([place] [facility]) Mid # 0.5 x10*3/UL 0.1-0.6 [facility] ([facility]) Neut # 3.8 x10*3/UL 2.0-7.8 [facility] ([facility]) ID Date Data Source [id number] 02/08/2021 01:07:00 PM EDT MEDENT ([facility]) Name Value Range Interpretation Code Description Data Neha rce(s) Supporting Document(s) Respiratory Panel Laboratory test result [facility] [facility] This respiratory PCR panel [...] - SARS-CoV-2 (COVID19) ID Date Data Source [id number] 02/08/2021 01:07:00 PM EDT [facility] Name Value Range Interpretation Code Description Data Neha rce(s) Supporting Document(s) SARS-CoV-2 (COVID 19) NEGATIVE - SARS-CoV-2 (COVID19) [facility] This lab was ordered by [facility] a nd reported by [facility]. ID Date Data Source [id number] 02/08/2021 11:47:00 AM EDT [facility] ([facility]) Name Value Range Interpretation Code Description Data Neha rce(s) Supporting Document(s) Laboratory test finding (navigational concept) 0.00 ng/mL 0.00-0.08 [facility] ([facility]) ID Date Data Source [id number] 02/08/2021 11:47:00 AM EDT MED[facility] ([facility]) Name Value Range Interpretation Code Description Data Neha rce(s) Supporting Document(s) Laboratory test finding (navigational concept) 0.00 ng/mL 0.00-0.08 [facility] ([facility]) ID Date Data Source [id number] 02/08/2021 11:47:00 AM EDT MED[facility] ([facility]) Name Value Range Interpretation Code Description Data Neha rce(s) Supporting Document(s) Troponin I.cardiac [Mass/volume] in Serum or Plasma Laboratory test result [facility] [place] [facility] Laboratory test finding (navigational concept) 0.00 ng/mL 0.00-0.08 [facility] ([facility]) ID Date Data Source [id number] 02/08/2021 11:35:00 AM EDT [facility] ([facility] Name Value Range Interpretation Code Description Data Neha rce(s) Supporting Document(s) Inr 0.92 [facility] ([place] [facility]) THERAPUTIC HUMAN INR VALUES INDICATIONS NORMAL RANGES PROPHYLAXIS/TREATMENT OF: VENOUS THROMBOSIS 2.0-3.0 PULMONARY EMBOLISM 2.0-3.0 PREVENTION OF SYSTEMIC EMBOLISM FROM: TISSUE HEART VALVES 2.0-3.0 ACUTE MYOCARDIAL INFARCTION 2.0-3.0 VALVULAR HEART DISEASE 2.0-3.0 ATRIAL FIBRILLATION 2.0-3.0 MECHANICAL VALVES(HIGH RISK) 2.5-3.5 RECURRENT MYOCARDIAL INFARCTION 2.5-3.5 Prothrombin Time 12.5 s 12.5-14.3 [facility] ([facility]) ID Date Data Source [id number] 02/08/2021 11:35:00 AM EDT MED[facility] ([facility]) Name Value Range Interpretation Code Description Data Neha rce(s) Supporting Document(s) aPTT in Blood by Coagulation assay 30.8 s 24.2-38.5 [facility] ([facility]) ID Date Data Source [id number] 02/08/2021 07:35:00 AM EDT [facility] ([facility] Name Value Range Interpretation Code Description Data Neha rce(s) Supporting Document(s) Laboratory test finding (navigational concept) 0.01 ng/mL 0.00-0.08 [facility] ([facility]) ID Date Data Source [id number] 02/08/2021 07:35:00 AM EDT MED[facility] ([facility]) Name Value Range Interpretation Code Description Data Neha rce(s) Supporting Document(s) Laboratory test finding (navigational concept) 0.01 ng/mL 0.00-0.08 [facility] ([place] [facility]) ID Date Data Source [id number] 02/08/2021 07:26:00 AM EDT [facility] ([facility]) Name Value Range Interpretation Code Description Data Enha rce(s) Supporting Document(s) Laboratory test finding (navigational concept) 38.0 % 38.0-51.0 [facility] ([facility]) Laboratory test finding (navigational concept) 143 meq/L 136-145 [facility] ([facility]) Laboratory test finding (navigational concept) 3.9 meq/L 3.5-5.1 [facility] ([facility]) Laboratory test finding (navigational concept) 111 mg/dL 70-105 [facility] ([facility]) Laboratory test finding (navigational concept) 5.0 mg/dL 4.5-5.3 [facility] ([facility]) Laboratory test finding (navigational concept) 102 meq/L 98-109 [facility] ([facility]) Laboratory test finding (navigational concept) 24.0 MM/L 23.0-27.0 [facility] ([facility]) Laboratory test finding (navigational concept) 15 mg/dL 8-26 [facility] ([facility]) Creatinine [Mass/volume] in Serum or Plasma 0.8 mg/dL 0.6-1.3 [facility] ([facility]) ID Date Data Source [id number] 02/08/2021 07:26:00 AM EDT [facility] ([facility]) Name Value Range Interpretation Code Description Data Neha rce(s) Supporting Document(s) Laboratory test finding (navigational concept) 111 mg/dL 70-105 [facility] ([facility] [place] [facility]) Laboratory test finding (navigational concept) 38.0 % 38.0-51.0 [facility] ([facility] [place] [facility]) Laboratory test finding (navigational concept) 5.0 mg/dL 4.5-5.3 [facility] ([facility] [place] [facility]) Laboratory test finding (navigational concept) 3.9 meq/L 3.5-5.1 [facility] ([facility] [place] [facility]) Laboratory test finding (navigational concept) 143 meq/L 136-145 [facility] ([facility] [place] [facility]) Laboratory test finding (navigational concept) 24.0 MM/L 23.0-27.0 [facility] ([facility] [place] [facility]) Laboratory test finding (navigational concept) 102 meq/L 98-109 [facility] ([facility]) Laboratory test finding (navigational concept) 0.8 mg/dL 0.6-1.3 [facility] ([facility] [place] [facility]) Laboratory test finding (navigational concept) 15 mg/dL 8-26 [facility] ([facility] [place] [facility]) ID Date Data Source [id number] 02/08/2021 07:20:00 AM EDT [facility] Name Value Range Interpretation Code Description Data Neha rce(s) Supporting Document(s) Ast/Sgot 16 U/L 7-37 [facility] ([place] [facility]) Alt/SGPT 29 U/L 12-78 [facility] ([place] [facility]) Alkaline Phosphatase 65 U/L 45-117 [facility] ([facility]) Total Protein 7.2 GM/DL 6.4-8.2 [facility] ([facility]) Bilirubin,Direct Laboratory test result 0.0-0.2 [facility] ([facility] [place] [facility]) Bilirubin,Total 0.3 mg/dL 0.2-1.0 [facility] ([facility]) Albumin 3.9 GM/DL 3.2-5.2 [facility] ([place] [facility]) Albumin/Globulin Ratio 1.2 1.2-2.2 [facility] ([place] [facility]) ID Date Data Source [id number] 02/08/2021 07:20:00 AM EDT [facility] ([facility]) Name Value Range Interpretation Code Description Data Neha rce(s) Supporting Document(s) Lipoprotein lipase [Enzymatic activity/volume] in Serum or P lasma 898 U/L 73-393 [facility] ([facility] [place] [facility]) Thyrotropin [Units/volume] in Serum or Plasma by Detec tion limit <= 0.05 mIU/L 2.560 uIU/ML 0.358-3.740 [facility] ([facility] [place] [facility] ) Thyroxine (T4) free [Mass/volume] in Serum or Plasma 0.96 ng/dL 0.76- 1.46 [facility] ([place] [facility]) ID Date Data Source [id number] 02/08/2021 07:20:00 AM EDT [facility] ([facility]) Name Value Range Interpretation Code Description Data Nhea rce(s) Supporting Document(s) White Blood Count 5.9 10 4.0-10.0 [facility] ([facility]) Hemoglobin 12.6 g/dL 12.0-15.5 [facility] ([facility]) Red Blood Count 4.21 10 4.00-5.40 [facility] ([facility]) Hematocrit 38.9 % 36.0-47.0 [facility] ([facility]) Mean Corpuscular Volume 92.4 fl 80.0-96.0 [facility] ([facility] [place] [facility]) Mean Corpuscular Hemoglobin 29.9 pg 27.0-33.0 MO DENT ([facility] [place] [facility]) Red Cell Distribution Width 13.1 % 11.5-14.5 [facility] ([facility] [place] [facility]) Mean Corpuscular HGB Conc 32.4 g/dL 32.0-36.5 MEDE NT ([facility] [place] [facility]) Neutrophils % 71.1 % 36.0-66.0 [facility] ([facility]) Lymph % 17.5 % 24.0-44.0 [facility] ([place] [facility]) Platelet Count, Automated 208 10 150-450 MEDE NT ([facility] [place] [facility]) [place] % 7.9 % 2.0-8.0 [facility] [facility] Eos % 2.7 % 0.0-3.0 [facility] ([place] [facility]) Baso % 0.5 % 0.0-1.0 [facility] [facility] Nucleated Red Blood Cell % 0.0 % 0-0 MED ENT ([facility] [place] [facility]) Immature Granulocyte % 0.3 % 0-3.0 [facility] ([facility] [place] [facility]) Neutrophils # 4.2 10 1.5-8.5 [facility] ([facility]) [place] # 0.5 10 0.0-0.8 [facility] ([place] [facility]) Lymph # 1.0 10 1.5-5.0 [facility] ([place] [facility]) Baso # 0.0 10 0.0-0.2 [facility] ([place] [facility]) Eos # 0.2 10 0.0-0.5 [facility] ([place] [facility]) ID Date Data Source [id number] 12/20/2020 03:01:00 PM EDT [facility] [employer] [facility] LEFTCLINICAL HISTORY: Joint pain, history of RA.COMPARISON: [...] Transcribed by: alma delia on 12/21/2020 09:21 [facility]: Name Value Range Interpretation Code Description Data Neha rce(s) Supporting Document(s) ID Date Data Source [id number] 12/20/2020 03:01:00 PM EDT [facility] [employer] [facility] RIGHTCLINICAL HISTORY: Joint pain, history of RA.COMPARISON: [...] Transcribed by: alma delia on 12/21/2020 09:19 [facility]: Name Value Range Interpretation Code Description Data Neha rce(s) Supporting Document(s) ID Date Data Source [id number] 12/20/2020 03:01:00 PM EDT [facility] LEFTCLINICAL HISTORY: Joint pain, history of RA.COMPARISON: None.TECHNIQUE: Two views.FINDINGS: There is no acute fracture or dislocation. Scattered mild osteoarthritic changes are seen, predominantly at the interphalangeal joints. There is no osseous erosion. The soft tissues are unremarkable.IMPRESSION: Mild osteoarthritis. No evidence of an inflammatory arthropathy.Dictated by: KRISTEL RAO on 12/21/2020 09:16 AM Transcribed by: alma delia on 12/21/2020 09:18 [facility]: Name Value Range Interpretation Code Description Data Neha rce(s) Supporting Document(s) ID Date Data Source [id number] 12/20/2020 02:32:00 PM EDT [facility] ([facility]) Name Value Range Interpretation Code Description Data Neha rce(s) Supporting Document(s) 5.5 mg/dL 2.4-8.6 URIC ACID [facility] ([facility]) ID Date Data Source [id number] 12/20/2020 02:32:00 PM EDT [facility] ([facility]) Name Value Range Interpretation Code Description Data Neha rce(s) Supporting Document(s) 0.7 mg/dL 0.0-0.5 Above high normal CRP [facility] ([facility]) ID Date Data Source [id number] 12/20/2020 02:32:00 PM EDT [facility] ([facility]) Name Value Range Interpretation Code Description Data Neha rce(s) Supporting Document(s) 0.9 mg/dL 0.6-1.2 CREATININE [facility] ([facility]) >60 eGFR Non- [facility] ([facility]) >60 eGFR [facility] ([facility]) ID Date Data Source [id number] 12/20/2020 02:32:00 PM EDT [facility] ([facility]) Name Value Range Interpretation Code Description Data Neha rce(s) Supporting Document(s) 16 mg/dL 10-23 BUN [facility] ([facility]) ID Date Data Source [id number] 12/20/2020 02:32:00 PM EDT [facility] ([facility]) Name Value Range Interpretation Code Description Data Neha rce(s) Supporting Document(s) 14 U/L 15-37 Below low normal AST [facility] ([facility]) ID Date Data Source [id number] 12/20/2020 02:32:00 PM EDT [facility] ([facility]) Name Value Range Interpretation Code Description Data Neha rce(s) Supporting Document(s) 35 U/L 30-65 ALT [facility] ([facility]) ID Date Data Source [id number] 12/20/2020 02:32:00 PM EDT [facility]) Name Value Range Interpretation Code Description Data Neha rce(s) Supporting Document(s) 4.1 g/dL 3.4-4.4 ALB [facility] ([facility]) ID Date Data Source [id number] 12/20/2020 02:32:00 PM EDT [facility] ([facility]) Name Value Range Interpretation Code Description Data Neha rce(s) Supporting Document(s) 13 Units <7 Above high normal RF IgM [facility] ([facility]) The following results were obtained with the [employer] QUANTA Lite RF IgM IVETTE. RF IgM values obtained with different manufacturers' assay methods may not be used interchangeably. The magnitude of the reported IgG levels cannot be correlated to an endpoint titer.

ID Date Data Source [id number] 12/20/2020 02:32:00 PM EDT [facility] ([facility]) Name Value Range Interpretation Code Description Data Neha rce(s) Supporting Document(s) 11 mm/Hr 0-20 ESR [facility] ([facility]) ID Date Data Source [id number] 12/20/2020 02:32:00 PM EDT [facility] Name Value Range Interpretation Code Description Data Neha rce(s) Supporting Document(s) Negative ANAIFA [facility] ([facility]) ID Date Data Source [id number] 12/20/2020 02:32:00 PM EDT [facility] Name Value Range Interpretation Code Description Data Neha rce(s) Supporting Document(s) 4 Units <20 ANTI-CCP IgG/IgA [facility] ([facility]) Interpretation: Negative <20; Weak Posit marilu 20-39; Moderate Positive 40-59; Strong Positive >/= 60.The following results were obtained with the [employer] [facility] QUANTA Lite CCP3.1 IgG/IgA IVETTE. Anti-CCP values obtained with different manufacturers' assay methods may not be used interchangeably. The magnitude of the reported IgG or IgA levels cannot be correlated to an endpoint titer.

ID Date Data Source [id number] 12/20/2020 02:32:00 PM EDT [facility] Name Value Range Interpretation Code Description Data Neha rce(s) Supporting Document(s) 7.5 10*3/uL 3.7-10.1 WBC [facility] ([facility]) 13.0 g/dL 12.0-16.0 HGB [facility] ([facility]) 4.35 10*6/uL 3.50-5.50 RBC [facility] ([facility]) 95.4 fL 80.0-100.0 MCV [facility] ([facility]) ID Date Data Source [id number] 10/19/2020 11:17:00 AM EST [facility] ([facility]) Name Value Range Interpretation Code Description Data Neha rce(s) Supporting Document(s) C reactive protein [Mass/volume] in Serum or Plasma by High sensitivity method 0.93 mg/dL 0.00-0.30 [facility] ([place] [facility] ) ID Date Data Source [id number] 10/19/2020 11:17:00 AM EST [facility] ([facility]) Name Value Range Interpretation Code Description Data Neha rce(s) Supporting Document(s) Antinuclear Antibodies Direct Laboratory test result Abnormal (applies to non- numeric results) [facility] [facility] Anti Double Strand-Dna AB Laboratory test result 0-9 [facility] ([place] [facility]) <content>Negative <5</content>
<content>Equivocal 5 - 9</content>
<content>Positive >9</content>
<content></content> BOILER TECHNICIAN Antibodies Laboratory test result 0.0-0.9 [facility]ENT ([place] [facility]) Sjogren's Anti SS-A 3.4 AI 0.0-0.9 [facility] ([facility] Sjogren's Anti SS-B Laboratory test result 0.0-0.9 [facility] ([place] [facility]) Alves Antibodies Laboratory test result 0.0-0.9 [facility] ([place] [facility] Makeda Comment Laboratory test result [facility] T ([place] [facility]) . Autoantibody Disease Association [...] (anti-Alves) SLE 15 - 30% ------- --------- BOILER TECHNICIAN Mixed Connective Tissue Disease 95% (U1 nRNP, SLE 30 - 50% anti-ribonucleoprotein) Polymyositis and/or Dermatomyositis 20% -------- --------- Scl-70 (antiDNA Scleroderma (diffuse) 20 - 35% topoisomerase) Crest 13% -------- --------- Nela-1 Polymyositis and/or Dermatomyositis 20 - 40% -------- --------- Centromere B Scleroderma - Crest variant 80% Performed at: RN - [facility] [address] [id number] Surgical Product Sales Consultant: Ladonna Ibrahim MD, Phone: [phone] ID Date Data Source [id number] 10/19/2020 11:17:00 AM EST [facility] ([facility]) Name Value Range Interpretation Code Description Data Neha rce(s) Supporting Document(s) Rheumatoid Factor Quant Laboratory test [facility] [place] [facility]) ID Date Data Source [id number] 10/19/2020 11:16:00 AM EST [facility] ([facility]) Name Value Range Interpretation Code Description Data Neha rce(s) Supporting Document(s) Cholesterol [Mass/volume] in Serum or Plasma 249 mg/dL 131-200 [facility] ([place] [facility]) Triglyceride [Mass/volume] in Serum or Plasma 248 mg/dL 30-150 [facility] ([place] [facility]) Cholesterol in LDL [Mass/volume] in Serum or Plasma by calcu lation 155 CALC 50-159 [facility] ([facility] [place] [facility]) Cholesterol in HDL [Mass/volume] in Serum or Plasma 44 mg/dL 35-60 [facility] ([place] [facility]) ID Date Data Source [id number] 10/19/2020 11:16:00 AM EST [facility] ([facility]) Name Value Range Interpretation Code Description Data Neha rce(s) Supporting Document(s) Glucose [Mass/volume] in Serum or Plasma 85 mg/dL 74-99 [facility] ([facility] [place] [facility]) 100-125 mg/dL PRE-DIABETES/FASTING >126 mg/dL DIABETES/FASTING Urea nitrogen [Mass/volume] in Serum or Plasma 16 mg/dL 7-18 [facility] ([place] [facility]) Creatinine 0.9 mg/dL 0.6-1.3 [facility] ([place] [facility]) Potassium [Moles/volume] in Serum or Plasma 4.0 meq/L 3.5-5.1 [facility] ([place] [facility]) Chloride [Moles/volume] in Serum or Plasma 104 meq/L 98-107 [facility] ([place] [facility]) Sodium [Moles/volume] in Serum or Plasma 142 meq/L 136-145 [facility] ([place] [facility]) Carbon dioxide, total [Moles/volume] in Serum or Plasma 29 meq/L 21 -32 [facility] ([facility] [place] [facility]) Calcium [Mass/volume] in Serum or Plasma 8.9 mg/dL 8.5-10.1 [facility] ([facility] [place]) Alkaline phosphatase isoenzyme [Units/volume] in Serum or Pl asma 70 mg/dL 46-116 [facility] ([place] [facility]) Total Bilirubin 0.4 mg/dL 0.2-1.0 [facility] ([facility]) Aspartate aminotransferase [Enzymatic activity/volume] in Serum or Plasma 11 U/L 15-37 [facility] ([place] [facility] ) Albumin [Mass/volume] in Serum or Plasma 3.7 g/dL 3.4-5.0 [facility] ([facility] [place]) Alanine aminotransferase [Enzymatic activity/volume] in Seru m or Plasma 28 U/L 12-78 [facility] ([facility] [place] [facility]) Proteinase 3 Ab [Units/volume] in Serum 6.9 g/dL 6.4-8.2 [facility] ([place] [facility]) A/G Ratio 1.16 CALC 1.00-1.90 [facility] ([place] [facility]) Glomerular filtration rate/1.73 sq M pre dicted among blacks [Volume Rate/Area] in Serum or Plasma by Creatinine-based formula (MDRD) Laboratory test result [facility] ([place] [facility]) <content>CHRONIC KIDNEY DISEASE STAGING PER NKF</content>
<content></content>
<content>STAGE I & II GFR >= 60 NORMAL TO MILDLY DECREASED</content>
<content>STAGE III GFR 30-59 MODERATELY DECREASED</content>
<content>STAGE IV GFR 15-29 SEVERELY DECREASED</content>
<content>STAGE V GFR <15 VERY LITTLE GFR LEFT</content>
<content>ESRD GFR <15 ON LOFT WORKER APPRENTICE</content>
<content></content> Glomerular filtration rate/1.73 sq M pre dicted among non-blacks [Volume Rate/Area] in Serum or Plasma by Creatinine-based formula (MDRD) Laboratory test result [facility] ([facility] [place] [facility] ) ID Date Data Source [id number] 10/19/2020 11:16:00 AM EST [facility] ([facility]) Name Value Range Interpretation Code Description Data Neha rce(s) Supporting Document(s) Erythrocyte sedimentation rate by Westergren method 19 mm/hr 0-15 [facility] ([place] [facility]) ID Date Data Source [id number] 10/19/2020 11:16:00 AM EST [facility] ([facility]) Name Value Range Interpretation Code Description Data Neha rce(s) Supporting Document(s) Leukocytes [#/volume] in Blood by Automated count 5.7 x10*3/UL 4.1-10 .9 [facility] ([place] [facility] CRITICAL: CBC VERIFIED Hemoglobin [Mass/volume] in Blood 11.9 g/dL 12.0-18.0 [facility] ([place] [facility]) Erythrocytes [#/volume] in Blood by Automated count 3.96 x10*6/UL 4.2 0-6.30 [facility] ([place] [facility]) MCV 86.2 fL 80.0-97.0 [facility] ([facility]) MCH 30.1 pg 26.0-32.0 [facility] ([facility]) Hematocrit [Volume Fraction] of Blood by Automated count 34.1 % 3 7.0-51.0 [facility] ([place] [facility]) MCHC 34.9 g/dL 31.0-38.0 [facility] ([facility]) Erythrocyte distribution width [Ratio] by Automated count 13.2 % 11.6-13.7 [facility] ([place] [facility]) Lymph % 28.0 % 10.0-58.5 [facility] ([facility]) Platelets [#/volume] in Blood by Automated count 251 x10*3/UL 140-440 [facility] ([place] [facility]) MPV 8.9 FL 7.8-11.0 [facility] ([facility]) Lymph # 1.6 x10*3/UL 0.6-4.1 [facility] ([place] [facility]) Neut % 64.0 % 37.0-92.0 [facility] ([facility]) Mid % 8.0 % 1.7-9.3 [facility] ([place] [facility]) Neut # 3.6 x10*3/UL 2.0-7.8 [facility] ([place]) Mid # 0.5 x10*3/UL 0.1-0.6 [facility] ([facility] [place] [facility]) Procedure Social History Code Duration Value Status Description Data Source(s ) Smoking 04/19/2021 12:00:00 AM EDT Patient is a former smoker completed Patient is a former smoker [facility] ([facility], ) Smoking 04/08/2021 12:00:00 AM EDT Patient is a former smoker completed Patient is a former smoker [facility] ([facility]) Caffeine Use Details 12/20/2020 12:00:00 AM EDT completed [facility] ([facility]) 12/20/2020 12:00:00 AM EDT Ex-cigarette smoker completed Ex-cigarette smoker [facility] ([facility]) Smoking 12/20/2020 12:00:00 AM EDT Former smoker completed Former smoker [facility] ([facility]) Smoking 08/22/2020 12:00:00 AM EST Patient is a former smoker completed Patient is a former smoker [facility] Vital Signs ID Date Data Source UNK Name Value Range Interpretation Code Description Data Source(s) Heart rate 79 /min 79 /min [facility] ([facility]) Body height 65 [in_i] 65 [in_i] [facility]) 5'5" Body mass index (BMI) [Ratio] 38.3 kg/m2 38.3 k g/m2 [facility] ([facility]) Systolic blood pressure 115 mm[Hg] 115 mm[Hg] [facility]) Diastolic blood pressure 75 mm[Hg] 75 mm[Hg] [facility] ([facility]) Respiratory rate 16 /min 16 /min [facility] ( [facility]) Oxygen saturation in Arterial blood by Pulse oximetry 97 % 97 % [facility] ([facility]) Body temperature 97.9 [degF] 97.9 [degF] [facility] Body weight 230.00 [lb_av] 230.00 [lb_av] MED[facility] T ([facility]) Systolic blood pressure 122 mm[Hg] 122 mm[Hg] M EDENT ([facility]) Diastolic blood pressure 74 mm[Hg] 74 mm[Hg] [facility] ([facility]) Heart rate 71 /min 71 /min [facility] ([facility]) Oxygen saturation in Arterial blood by Pulse oximetry 95 % 95 % [facility] ([facility]) Body height 65 [in_i] 65 [in_i] [facility] ([facility]) 5'5" Body weight 236.50 [lb_av] 236.50 [lb_av] [facility] T ([facility]) Body mass index (BMI) [Ratio] 39.4 kg/m2 39.4 k g/m2 [facility] ([facility]) [place] body weight 125 [lb_av] 125 [lb_av] MED[facility] T ([facility]) Body weight 107.276 kg 107.276 kg [facility] ([facility]) Body surface area Derived from formula 2.12 m2 2.12 m2 [facility] ([facility]) Body weight 233.00 [lb_av] 233.00 [lb_av] [facility] T ([facility]) Body height 65 [in_i] 65 [in_i] [facility]) 5'5" Body mass index (BMI) [Ratio] 38.8 kg/m2 38.8 k g/m2 [facility] Systolic blood pressure--sitting 124 mm[Hg] 124 mm[Hg] [facility] ([facility]) large cuff, Ra; 121/84 [place] Systolic blood pressure--supine 126 mm[Hg] 126 mm[Hg] [facility] ([facility]) Ra Heart rate 76 /min 76 /min [facility] ([facility]) regular with occasional irregularity Respiratory rate 18 /min 18 /min [facility] ( [facility]) Diastolic blood pressure--sitting 82 mm[Hg] 82 mm[Hg] [facility] large cuff, Ra; 121/84 [place] Diastolic blood pressure--supine 83 mm[Hg] 83 mm[Hg] [facility] ([facility]) Ra Systolic blood pressure 122 mm[Hg] 122 mm[Hg] [facility] [place] [facility]) Diastolic blood pressure 80 mm[Hg] 80 mm[Hg] [facility] ([facility]) Heart rate 70 /min 70 /min [facility] ([facility]) Body height 66.50 [in_i] 66.50 [in_i] [facility] ([facility]) 5'6.50" Body weight 233.00 [lb_av] 233.00 [lb_av] [facility] ([facility]) Oxygen saturation in Arterial blood by Pulse oximetry 97 % 97 % [facility] ([facility]) RM Air Body mass index (BMI) [Ratio] 37.0 kg/m2 37.0 k g/m2 [facility] ([facility]) Heart rate 68 /min 68 /min [facility] ([facility]) Diastolic blood pressure 78 mm[Hg] 78 mm[Hg] [facility] ([facility]) Systolic blood pressure 126 mm[Hg] 126 mm[Hg] [facility] ([facility]) Body height 66.50 [in_i] 66.50 [in_i] [facility] ([facility]) 5'6.50" Body weight 236.00 [lb_av] 236.00 [lb_av] [facility] ([facility]) Oxygen saturation in Arterial blood by Pulse oximetry 98 % 98 % [facility] ([facility]) RM Air Body mass index (BMI) [Ratio] 37.5 kg/m2 37.5 k g/m2 [facility] ([facility]) Systolic blood pressure 133 mm[Hg] 133 mm[Hg] [facility] ([facility], [facility]) Diastolic blood pressure 83 mm[Hg] 83 mm[Hg] [facility] ([facility], [facility]) Body weight 230.00 [lb_av] 230.00 [lb_av] [facility] ([facility], [facility]) Body height 65 [in_i] 65 [in_i] [facility] ([facility]) 5'5" Body mass index (BMI) [Ratio] 38.3 kg/m2 38.3 k g/m2 [facility] ([facility]) Heart rate 73 /min 73 /min [facility] ([facility], [facility]) Respiratory rate 16 /min 16 /min [facility] ( [facility], [facility]) Oxygen saturation in Arterial blood by Pulse oximetry 97 % 97 % [facility] ([facility], [facility]) Body temperature 98.0 [degF] 98.0 [degF] [facility] ([facility], [facility]) Body height 162.56 cm 162.56 cm [facility] ([facility]) Body weight 107.955 kg 107.955 kg [facility] ([facility]) Systolic blood pressure 130 mm[Hg] 130 mm[Hg] N [facility] ([facility]) Diastolic blood pressure 80 mm[Hg] 80 mm[Hg] [facility] ([facility]) Body mass index (BMI) [Ratio] 40.85 kg/m2 Overweight 40.85 kg/m2 [facility] ([facility]) Systolic blood pressure 120 mm[Hg] 120 mm[Hg] M [facility] ([facility]) RT Arm Diastolic blood pressure 80 mm[Hg] 80 mm[Hg] [facility] ([facility]) RT Arm Heart rate 80 /min 80 /min [facility] ([facility]) Body height 66.50 [in_i] 66.50 [in_i] [facility] ([facility]) 5'6.50" Body weight 236.00 [lb_av] 236.00 [lb_av] [facility] T ([facility]) Body mass index (BMI) [Ratio] 37.5 kg/m2 37.5 k g/m2 [facility] ([facility]) Systolic blood pressure 122 mm[Hg] 122 mm[Hg] M [facility] ([facility]) Diastolic blood pressure 78 mm[Hg] 78 mm[Hg] [facility] ([facility]) Heart rate 84 /min 84 /min [facility] ([facility]) Body height 66.50 [in_i] 66.50 [in_i] [facility] ([facility]) 5'6.50" Body weight 232.00 [lb_av] 232.00 [lb_av] [facility] ([facility]) Oxygen saturation in Arterial blood by Pulse oximetry 96 % 96 % [facility] ([facility]) Air Body mass index (BMI) [Ratio] 36.9 kg/m2 36.9 k g/m2 [facility] ([facility]) Body mass index (BMI) [Ratio] 37.5 kg/m2 37.5 k g/m2 [facility] ([facility]) Systolic blood pressure 130 mm[Hg] 130 mm[Hg] M [facility] ([facility]) Diastolic blood pressure 80 mm[Hg] 80 mm[Hg] [facility] ([facility]) Body height 66.50 [in_i] 66.50 [in_i] [facility] ([facility]) 5'6.50" Body weight 236.00 [lb_av] 236.00 [lb_av] [facility] ([facility]) Systolic blood pressure 125 mm[Hg] 125 mm[Hg] [facility] ([facility], [facility]) Diastolic blood pressure 74 mm[Hg] 74 mm[Hg] [facility] ([facility], [facility]) Heart rate 86 /min 86 /min [facility] ([facility], [facility]) Respiratory rate 16 /min 16 /min [facility] ( [facility], [facility]) Oxygen saturation in Arterial blood by Pulse oximetry 97 % 97 % [facility] ([facility], [facility]) Body temperature 97.8 [degF] 97.8 [degF] [facility] ([facility], [facility]) Body weight 210.00 [lb_av] 210.00 [lb_av] [facility] ([facility], [facility]) Patient Treatment Plan of Care Planned Activity [...] il] 04/15/2019 12:00:00 AM EDT [facility] ([facility]) Chondroitin Sulfates 200 MG / Glucosamine hydrochloride 250 MG O ral Tablet [facility] ([facility]) Acetaminophen 325 MG Oral Tablet [facility] ([facility])
[2021-07-12] MEDS ORDERED: KETOROLAC 30 MG/ML 1ML VIAL IV ONE ×2 (16:30→21:00)
[2021-07-12] MEDS ORDERED: NS 1,000 ML IV ONE ×2 (16:30→19:05)
--- NOTE | 2021-07-12 18:15 | REP ---
INDICATION: RUQ pain with elevated LFT's COMPARISON: None. TECHNIQUE: Real time abbott scale ultrasound examination using curved array transducer. FINDINGS: Liver demonstrates mild fatty infiltration without focal hepatic lesion. Visualized portions of the pancreas are normal. The gallbladder demonstrates sludge and gallstones up to 16 mm without wall thickening or pericholecystic fluid. Common bile duct is mildly dilated to 8.6 mm diameter. Right kidney is normal in reniform shape without hydronephrosis and measures 11.9 x 4.8 x 3.9 cm cm. No ascites in the visualized right upper quadrant. IMPRESSION: Cholelithiasis. Correlation with physical examination is required to exclude the possibility of early acute cholecystitis. <Electronically signed by Kofi Oakes > 07/12/21 0270
[2021-07-12 20:00] LABS: RSV AMPLIFICATION NEGATIVE (NEGATIVE)
[2021-07-12] MEDS ORDERED: MORPHINE 4 MG/ML 1ML VIAL/SYRINGE (J2270) IV ONE (23:45)
[2021-07-13 01:01] VITALS: BP 165/68
== END 2021-07-13 01:05 | disposition short-term general hospital (02) ==
LOC: M ED 10:33
DX: K80.20 Calculus of gallbladder without cholecystitis without obstruction (principal); K76.0 Fatty (change of) liver, not elsewhere classified; R94.5 Abnormal results of liver function studies; I10 Essential (primary) hypertension; I73.00 Raynaud's syndrome without gangrene; Z87.891 Personal history of nicotine dependence; Z79.899 Other long term (current) drug therapy
CPT/HCPCS: 76705; 80048; 80076; 81001; 83690; 85025; 87086; 87631; 96361; 96374; 96375; 96376; 99284; J1885; J2270

== ENCOUNTER → 2021-07-26 | Outpatient (REF) | payer BC | LOC: M WUC 19:11 | PROVIDERS: ATTEND Physician Assistant | DX: R30.0 Dysuria (principal) ==

== ENCOUNTER → 2021-08-28 | Outpatient (CLI) | payer BC | LOC: M LABSMTC 10:14 | PROVIDERS: ATTEND Anesthesiology | DX: Z11.52 Encounter for screening for COVID-19 (principal); Z20.822 Contact with and (suspected) exposure to COVID-19 ==

== ENCOUNTER → 2021-11-08 | Outpatient (REF) | payer BC ==
[2021-11-08 17:29] LABS: PERCENT SATURATION 22.9 % (13.2-45.0)
== END ==
LOC: M LAB REF 16:24
PROVIDERS: ATTEND Internal Medicine
DX: I13.0 Hypertensive heart and chronic kidney disease with heart failure and stage 1 through stage 4 chronic kidney disease, or unspecified chronic kidney disease (principal); R74.01 Elevation of levels of liver transaminase levels

== ENCOUNTER → 2022-10-24 | Outpatient (REF) | payer BC ==
[~2022-10-24] MED LIST changes: -GLUCTAB6 PO; +GLUCTAB7 PO
[2022-10-24 16:55] LABS: PERCENT SATURATION 29.6 % (13.2-45.0)
[2022-10-24 16:56] LABS: C REACTIVE PROTEIN QUANTITATIV 0.9 MG/DL (<1.0)
== END ==
LOC: M LAB REF 16:05
PROVIDERS: ATTEND Internal Medicine
DX: M06.9 Rheumatoid arthritis, unspecified (principal); D64.9 Anemia, unspecified

== ENCOUNTER → 2023-04-01 | Outpatient (CLI) | payer BC ==
[~2023-04-01] MED LIST changes: -HYDR200T3 PO; +HYDR200T46 PO; +ISOVUE-300 61% 100ML VIAL As Ordered ONE; +LIDOCAINE 1% MDV 20ML VIAL As Ordered ONE; +methylPREDNISolone SUSP 40MG/ML 1ML VIAL (DEPO MEDROL) As Ordered ONE
== END ==
LOC: M RAD 11:08
PROVIDERS: ATTEND Physician Assistant
DX: M16.12 Unilateral primary osteoarthritis, left hip (principal)
CPT/HCPCS: 20610; 77002; J1030; Q9967

== ENCOUNTER → 2023-06-05 | Outpatient (CLI) | payer BC ==
[~2023-06-05] MED LIST changes: -ISOVUE-300 61% 100ML VIAL As Ordered ONE; -LIDOCAINE 1% MDV 20ML VIAL As Ordered ONE; -methylPREDNISolone SUSP 40MG/ML 1ML VIAL (DEPO MEDROL) As Ordered ONE
== END ==
LOC: M PLAIMG 08:39
PROVIDERS: ATTEND Physician Assistant
DX: M06.9 Rheumatoid arthritis, unspecified (principal); M16.12 Unilateral primary osteoarthritis, left hip; M25.452 Effusion, left hip; M70.62 Trochanteric bursitis, left hip; M85.652 Other cyst of bone, left thigh

== ENCOUNTER 2023-07-12 08:59 | Emergency (ER) | payer BC ==
[~2023-07-12] VITALS: Ht 167.6 cm; Wt 111.8 kg
[2023-07-12] MEDS ORDERED: HUMI40IN2 (09:18)
[2023-07-12] MEDS ORDERED: ROSU5TAB5 (09:18)
[2023-07-12 12:18] VITALS: BP 152/67; TEMP 97.7; O2SAT 99
== END 2023-07-12 12:21 | disposition home or self-care (01) ==
LOC: M ED 08:59
DX: R22.41 Localized swelling, mass and lump, right lower limb (principal); I10 Essential (primary) hypertension; M19.90 Unspecified osteoarthritis, unspecified site; M06.9 Rheumatoid arthritis, unspecified; Z79.899 Other long term (current) drug therapy

== ENCOUNTER → 2023-08-11 | Outpatient (CLI) | payer BC ==
[~2023-08-11] MED LIST changes: +HUMI40IN2; +ROSU5TAB5
== END ==
LOC: M RAD 09:45
PROVIDERS: ATTEND Orthopaedic Surgery
DX: Z01.818 Encounter for other preprocedural examination (principal); M16.12 Unilateral primary osteoarthritis, left hip; Q25.46 Tortuous aortic arch

== ENCOUNTER → 2023-08-13 | Outpatient (REF) | payer BC ==
[2023-08-13 17:55] LABS: INR 1.03; PROTHROMBIN TIME 13.2 SECONDS (12.5-14.5)
== END ==
LOC: M LAB REF 16:17
PROVIDERS: ATTEND Internal Medicine
DX: Z01.818 Encounter for other preprocedural examination (principal)

== ENCOUNTER → 2023-09-23 | Outpatient (REF) | payer BC | LOC: M LAB REF 16:23 | PROVIDERS: ATTEND Internal Medicine | DX: N39.0 Urinary tract infection, site not specified (principal) ==

== ENCOUNTER → 2023-11-20 | Outpatient (CLI) | payer BC ==
[2023-11-20 10:30] LABS: APPEARANCE, URINE HAZY (CLEAR); BACTERIA, URINE AUTO NEGATIVE (NEGATIVE); BILIRUBIN, URINE AUTO NEGATIVE (NEGATIVE); BLOOD, URINE BLOOD NEGATIVE (NEGATIVE); COLOR, URINE YELLOW (YELLOW); GLUCOSE, URINE (UA) AUTO NEGATIVE (NEGATIVE); KETONE, URINE AUTO NEGATIVE (NEGATIVE); LEUKOCYTE ESTERASE, URINE AUTO 2+ (NEGATIVE); MUCUS, URINE SMALL (NEGATIVE); NITRITE, URINE AUTO NEGATIVE (NEGATIVE); PROTEIN, URINE AUTO NEGATIVE (NEGATIVE); RBC, URINE AUTO 1 /HPF (0-3); SPECIFIC GRAVITY URINE AUTO 1.013 (1.002-1.035); SQUAMOUS EPITHELIAL CELL UR AU 4 /HPF (0-6); UROBILINOGEN, URINE AUTO 0.2 mg/dL (0.0-2.0); WBC, URINE AUTO 4 /HPF (0-3)
[2023-11-20 10:44] LABS: BASO # 0.1 10^3/uL (0.0-0.2); EOS # 0.3 10^3/uL (0.0-0.5); EOS % 5.1 % (0.0-3.0); HEMATOCRIT 36.4 % (36.0-47.0); HEMOGLOBIN 11.8 g/dl (12.0-15.5); LYMPH # 1.6 10^3/uL (1.5-5.0); LYMPH % 31.5 % (24.0-44.0); MEAN CORPUSCULAR HEMOGLOBIN 30.1 pg (27.0-33.0); MEAN CORPUSCULAR HGB CONC 32.4 g/dl (32.0-36.5); MEAN CORPUSCULAR VOLUME 92.9 fl (80.0-96.0); MONO # 0.5 10^3/uL (0.0-0.8); MONO % 10.3 % (2.0-8.0); NEUTROPHILS # 2.7 10^3/uL (1.5-8.5); NEUTROPHILS % 51.7 % (36.0-66.0); PLATELET COUNT, AUTOMATED 204 10^3/uL (150-450); RED BLOOD COUNT 3.92 10^6/uL (4.00-5.40); WHITE BLOOD COUNT 5.1 10^3/uL (4.0-10.0)
[2023-11-20 10:54] LABS: INR 0.99; PROTHROMBIN TIME 12.8 SECONDS (12.5-14.5)
[2023-11-20 11:30] LABS: ALBUMIN 3.8 G/DL (3.2-5.2); ALKALINE PHOSPHATASE 68 U/L (46-116); ALT/SGPT 35 U/L (7.0-40); AST/SGOT 15 U/L (<34); BILIRUBIN,TOTAL 0.4 MG/DL (0.3-1.2); BLOOD UREA NITROGEN 17 MG/DL (9-23); CALCIUM LEVEL 10.2 MG/DL (8.3-10.6); CARBON DIOXIDE LEVEL 28 MMOL/L (20-31); CHLORIDE LEVEL 106 MMOL/L (98-107); CREATININE FOR GFR 0.72 MG/DL (0.55-1.30); GLOMERULAR FILTRATION RATE > 60.0 (>45); GLUCOSE, FASTING 100 MG/DL (74-106); POTASSIUM SERUM 3.9 MMOL/L (3.5-5.1); SODIUM LEVEL 141 MMOL/L (136-145); TOTAL 25(OH) VITAMIN D 31.9 NG/ML (20.0-100.0); TOTAL PROTEIN 6.6 G/DL (5.7-8.2)
== END ==
LOC: M RAD 09:14
PROVIDERS: ATTEND Orthopaedic Surgery
DX: M19.011 Primary osteoarthritis, right shoulder (principal); I45.10 Unspecified right bundle-branch block

== ENCOUNTER → 2023-12-16 | Outpatient (CLI) | payer BC ==
[2023-12-16 12:30] LABS: APPEARANCE, URINE HAZY (CLEAR); BACTERIA, URINE AUTO NEGATIVE (NEGATIVE); BILIRUBIN, URINE AUTO NEGATIVE (NEGATIVE); BLOOD, URINE BLOOD NEGATIVE (NEGATIVE); COLOR, URINE YELLOW (YELLOW); GLUCOSE, URINE (UA) AUTO NEGATIVE (NEGATIVE); KETONE, URINE AUTO NEGATIVE (NEGATIVE); LEUKOCYTE ESTERASE, URINE AUTO 3+ (NEGATIVE); MUCUS, URINE SMALL (NEGATIVE); NITRITE, URINE AUTO NEGATIVE (NEGATIVE); PROTEIN, URINE AUTO NEGATIVE (NEGATIVE); RBC, URINE AUTO 3 /HPF (0-3); SPECIFIC GRAVITY URINE AUTO 1.023 (1.002-1.035); SQUAMOUS EPITHELIAL CELL UR AU 7 /HPF (0-6); TRANSITIONAL EPITHELIAL AUTO 1 /HPF; UROBILINOGEN, URINE AUTO 0.2 mg/dL (0.0-2.0); WBC, URINE AUTO 8 /HPF (0-3)
== END ==
LOC: M PLALAB 11:22
PROVIDERS: ATTEND Physician Assistant
DX: M19.011 Primary osteoarthritis, right shoulder (principal)

== ENCOUNTER → 2024-06-14 | Outpatient (REF) | payer BC ==
[~2024-06-14] MED LIST changes: +ROSU5TAB40; -ROSU5TAB5
== END ==
LOC: M LAB REF 13:33
PROVIDERS: ATTEND Internal Medicine
DX: M06.9 Rheumatoid arthritis, unspecified (principal)

== ENCOUNTER → 2024-10-24 | Outpatient (CLI) | payer BC ==
[~2024-10-24] MED LIST changes: -ROSU5TAB40; +ROSU5TAB49
== END ==
LOC: M WUC 10:03
PROVIDERS: ATTEND Registered Nurse
DX: J06.9 Acute upper respiratory infection, unspecified (principal)

== ENCOUNTER → 2024-12-16 | Outpatient (REF) | payer BC ==
[2024-12-16 13:21] LABS: PERCENT SATURATION 26.6 % (13.2-45.0)
== END ==
LOC: M LAB REF 12:42
PROVIDERS: ATTEND Internal Medicine
DX: D64.9 Anemia, unspecified (principal)

== ENCOUNTER → 2025-06-21 | Outpatient (CLI) | payer BC ==
[~2025-06-21] MED LIST changes: -DIPH50CA PO; +DIPH50CA31 PO; +HYDR12.510 PO; -HYDR12CA PO; -IBUP-1022 PO; +IBUP600T42 PO; +LISI40TA10 PO; -LISI40TA4 PO
== END ==
LOC: M PLAIMG 11:50
PROVIDERS: ATTEND Physician Assistant Surgical
DX: M72.2 Plantar fascial fibromatosis (principal); M94.271 Chondromalacia, right ankle and joints of right foot; S93.421A Sprain of deltoid ligament of right ankle, initial encounter; X58.XXXA Exposure to other specified factors, initial encounter; Y92.9 Unspecified place or not applicable; Y93.9 Activity, unspecified; Y99.9 Unspecified external cause status; M77.31 Calcaneal spur, right foot; M77.52 Other enthesopathy of left foot and ankle